=== PATIENT | male | born 1970 | race Caucasian/White ===

== ENCOUNTER 2023-01-11 13:45 | Emergency (ER) | payer MEDICARE, SELFPAY ==
[2023-01-11] VITALS (16 sets, daily range): BP systolic 98–125; BP diastolic 41–60; PULSE 57–76; RESP 16–21; TEMP 36.7; O2SAT 93–97; BMI 28.3
--- NOTE | 2023-01-11 13:53 | ECG_ITS ---
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 Measurements Intervals [place] Rate: 64 P: -10 SC: 158 QRS: -29 QRSD: 122 T: 152 QT: 410 QTc: 424 Interpretive Statements SINUS RHYTHM POSSIBLE LEFT ATRIAL ENLARGEMENT [-0.1mV P-WAVE IN V1/V2] POSSIBLE RIGHT VENTRICULAR CONDUCTION DELAY [RSR (QR) IN V1/V2] INFERIOR MYOCARDIAL INFARCTION , PROBABLY OLD [40+ ms Q WAVE AND/OR ST/T ABNORMALITY IN II/aVF] INTERPRETATION BASED ON A DEFAULT AGE OF 40 YEARS No previous ECG available for comparison Electronically Signed On 01-11-2023 22:09:58 CDT by Maria Del Rosario Clarke M.D. [id number] f
--- NOTE | 2023-01-11 13:58 | W.ED.CHESTPA ---
HPI - Chest Pain General: Chief Complaint: Chest Pain Stated Complaint: CHEST PAIN Time Seen by Provider: 01/11/23 13:53 History of Present Illness: Arrives via EMS with complaints of chest pain, dizziness and fall. Patient states this started about 1 hour prior to arrival. EMS did give patient 1 nitro and aspirin patient is now pain-free. Patient does have a history of a three-vessel CABG approximately 3 years ago and possible [place] MD complaint: chest pain Pertinent past history: coronary artery disease and prior [place] Onset (ago): hour(s) (1 hour) Timing of current episode: now resolved Prior episodes: Yes Pain location: left chest Severity: mild Quality: sharp Relieving factors: nitroglycerin Exacerbating factors: nothing Associated symptoms: Reports syncope (Possible syncope and fall); Deny abdominal pain, dyspnea, fever(s), nausea, palpitations or vomiting Treatment prior to arrival: aspirin and nitroglycerin Review of Systems General: Reports: 10 or more systems reviewed and unremarkable except in HPI and below Const: Denies: fever(s) or chills Eyes: Denies: change in vision ENMT: Denies: throat pain or odynophagia Card: Reports: chest pain and syncope (Possible syncope and fall); Denies: palpitations or irregular heart rhythm Resp: Denies: dyspnea, productive cough or non-productive cough GI: Denies: abdominal pain, nausea, vomiting or diarrhea : Denies: flank pain or dysuria Musc: Denies: neck pain or back pain Skin/Breast: Denies: rash or pruritus Neuro: Denies: headache(s), numbness in extremities or weakness in extremities Psych: Denies: anxiety or depression Physical Exam Const: COMMON NORMALS: no acute distress, average body habitus, patient oriented x3, no limitations, healthy appearing, alert and well nourished HENMT: COMMON NORMALS: normocephalic, atraumatic, hearing grossly normal bilaterally, external ears normal, Normal external nose present and moist oral mucous membranes HEAD & SCALP: normocephalic and atraumatic NOSE: Normal external nose present EXTERNAL EAR: Yes external ears normal Neck/C-Spine: COMMON NORMALS: full ROM, no lymphadenopathy, supple, no meningeal signs, no JVD, Thyroid normal and No carotid bruits THYROID: Thyroid normal Chest: COMMONS NORMALS: normal inspection of the chest OTHER: Tender to palpation over left anterior chest wall Resp: COMMON NORMALS: normal respiratory effort, No retractions, No use of accessory muscles and clear to auscultation bilaterally AUSCULTATION: clear to auscultation bilaterally Cardio: COMMON NORMALS: no JVD, regular rate, regular rhythm, S1 normal heart sound present, S2 normal heart sound present, No gallops present (Cardio), No clicks present (Cardio) and No murmurs present (Cardio) RATE: regular rate RHYTHM: regular rhythm HEART SOUNDS: S1 normal heart sound present and S2 normal heart sound present GI: COMMON NORMALS: Normal to inspection, nondistended, normoactive bowel sounds present, Soft to palpation, non-tender, No hepatosplenomegaly present and no masses PALPATION: Yes Soft to palpation and Yes No hepatosplenomegaly present : COMMON NORMALS: Yes no CVA tenderness BLADDER/KIDNEY EXAM: Yes no CVA tenderness Back/Pelvis: COMMON NORMALS: no CVA tenderness Extremity: COMMON NORMALS: normal to inspection Neuro: COMMON NORMALS: patient oriented x3 SENSORIUM/ORIENTATION: Yes alert MENINGEAL SIGNS: Yes no meningeal signs Course Vital Signs: Vital signs: Vital Signs Temperature 98.1 F 01/11/23 13:48 Pulse Rate 76 01/11/23 15:20 Respiratory Rate 17 01/11/23 15:20 Blood Pressure 111/49 01/11/23 16:00 Pulse Oximetry 97 01/11/23 16:00 Oxygen Delivery Me thod 01/11/23 13:48 MDM - Chest Pain Medical Decision Making Patient presents with complaints of chest pain and syncope, patient states he had this happen approximately 1 hour prior to arrival. Patient has had this happen in the past. Patient does have a defibrillator and has had a CABG in the past. Patient denies any palpitations tachycardia. Patient's chest pain has resolved. Upon physical exam of the patient as well as review of the labs which included serial troponins and serial EKGs is felt that this chest pain is not cardiac in nature. These findings were discussed with the patient and patient will be discharged home to follow-up with his primary care practitioner within the next week. Differential Diagnosis Unlikely acute massive pulmonary embolism, acute respiratory failure, acute myocardial infarction, cardiac arrest or sudden cardiac Lab Data 01/11/23 13:50 01/11/23 13:50 Radiology Impressions Chest X-Ray 01/11/23 14:05 IMPRESSION: No acute findings. Laboratory Results WBC 7.1 10^3/uL (4.0-10.0) 01/11/23 13:50 RBC 5.53 10^6/uL (4.1-5.3) H 01/11/23 13:50 Hgb 15.9 g/dL (11.7-16.6) 01/11/23 13:50 Hct 49.4 % (42.0-52.0) 01/11/23 13:50 MCV 89.3 fl (80-94) 01/11/23 13:50 MCH 28.8 pg (28.0-34.0) 01/11/23 13:50 MCHC 32.2 g/dL (30.0-36.0) 01/11/23 13:50 RDW 13.9 % (12.1-15.1) 01/11/23 13:50 Plt Count 319 10^3/cmm (130-400) 01/11/23 13:50 MPV 9.8 fL (7.4-10.4) 01/11/23 13:50 Neut % (Auto) 46.3 % 01/11/23 13:50 Lymph % (Auto) 38.0 % 01/11/23 13:50 [place] % (Auto) 8.5 % 01/11/23 13:50 Eos % (Auto) 6.1 % 01/11/23 13:50 Baso % (Auto) 0.8 % 01/11/23 13:50 Neut # (Auto) 3.28 10^3/uL (1.8-7.7) 01/11/23 13:50 Lymph # (Auto) 2.7 10^3/uL (0.8-4.8) 01/11/23 13:50 [place] # (Auto) 0.6 10^3/uL (0.2-0.9) 01/11/23 13:50 Eos # (Auto) 0.4 10^3/uL (0.0-0.8) 01/11/23 13:50 Baso # (Auto) 0.1 10^3/uL (0.0-0.1) 01/11/23 13:50 Nucleated RBC % (auto) 0 % 01/11/23 13:50 Nucleated RBCs # 0.0 /100WBC 01/11/23 13:50 PT 12.70 SECONDS (12.1-14.9) 01/11/23 13:50 INR 0.93 (0.8-1.2) 01/11/23 13:50 Sodium 135 mmol/L (136-145) L 01/11/23 13:50 Potassium 4.1 mmol/L (3.5-5.1) 01/11/23 13:50 Chloride 102 mmol/L (98-107) 01/11/23 13:50 Carbon Dioxide 22 mmol/L (22-29) 01/11/23 13:50 Anion Gap 15.1 (5-19) 01/11/23 13:50 BUN 19 mg/dL (6-20) 01/11/23 13:50 Creatinine 0.8 mg/dL (0.7-1.2) 01/11/23 13:50 GFR Calculation 101.9 mL/min (90-130) 01/11/23 13:50 Glucose 111 mg/dL (65-115) 01/11/23 13:50 Calculated Osmolality 283 mOsm/kg (285-295) L 01/11/23 13:50 Calcium 9.0 mg/dL (8.5-10.5) 01/11/23 13:50 Total Bilirubin 0.2 mg/dL (0.15-1.2) 01/11/23 13:50 AST 14 U/L (0-40) 01/11/23 13:50 ALT 11 U/L (0-41) 01/11/23 13:50 Alkaline Phosphatase 78 U/L (40-130) 01/11/23 13:50 Troponin T Baseline 12 ng/L (0-15) 01/11/23 13:50 Troponin T 120 Minute 11.51 ng/L (0-15) 01/11/23 16:26 Total Protein 6.9 g/dL (6.6-8.7) 01/11/23 13:50 Albumin 3.6 g/dL (3.5-5.2) 01/11/23 13:50 Globulin 3.3 g/dL (1.3-4.6) 01/11/23 13:50 Urine Color Yellow (Yellow) 01/11/23 14:30 Urine Appearance Sl hazy (CLEAR) A 01/11/23 14:30 Urine pH 5 (5-7) 01/11/23 14:30 Ur Specific [place] 1.025 (1.005-1.030) 01/11/23 14:30 Urine Protein Neg (Negative) 01/11/23 14:30 Urine Glucose (UA) Norm (Normal) 01/11/23 14:30 Urine Ketones Negative (Negative) 01/11/23 14:30 Urine Blood Neg (Negative) 01/11/23 14:30 Urine Nitrate Negative (Negative) 01/11/23 14:30 Urine Bilirubin Neg (Negative) 01/11/23 14:30 Urine Urobilinogen Norm mg/dL (Negative) 01/11/23 14:30 Ur Leukocyte Esterase Trace (Negative) H 01/11/23 14:30 Urine RBC 0-4 /hpf (0-2) H 01/11/23 14:30 Urine WBC 10-15 /hpf (0-5) H 01/11/23 14:30 Ur Squamous Epith Cells 0-4 /hpf (0-5) H 01/11/23 14:30 Amorphous Sediment Not Reportable 01/11/23 14:30 Urine Bacteria Trace /hpf (NONE) 01/11/23 14:30 Urine Mucus 2+ /hpf 01/11/23 14:30 EKG Data EKG 1: I personally reviewed and interpreted this EKG as follows: EKG interpretation date: 01/11/23 EKG interpretation time: 13:50 Prior EKG tracings: not available for review Interpretation: EKG showed ventricular rate normal sinus rhythm at 64 bpm, TX interval 158, QRS duration 122, QTc 419, possible left atrial enlargement, possible right ventricular conduction delay, inferior myocardial infarction probably old shows Q waves and/or ST abnormalities in 2 and aVF. EKG 2: I personally reviewed and interpreted this EKG as follows: EKG interpretation date: 01/11/23 EKG interpretation time: 15:47 Prior EKG tracings: available for review Interpretation: EKG showed sinus bradycardia with a ventricular rate of 56 bpm, TX interval 167, QRS duration 115, QTc of 413, right axis deviation, possible right ventricular conduction delay, possible inferior myocardial infarction of indeterminate age Q waves and/or ST T wave abnormalities in leads II and aVF Discharge Plan Discharge Patient Disposition: Home Clinical Impression: Chest pain Condition: Stable Discharge Orders: Discharge ED (Routine); Ordered 01/11/23 Ordered By: Rigo Ambrocio Patient Instructions: Chest Pain (ED) Coding Level of Care Code ED [employer] Internship for Jacky Carvajal
--- NOTE | 2023-01-11 14:05 | XRR_ITS ---
PROCEDURE INFORMATION: Exam: XR Chest Exam date and time: 01/11/2023 2:11 PM Age: 52 years old Clinical indication: Pain; Chest pressure; Prior surgery; Surgery type: Triple bypass; Valve replacement; Defibrillator; Additional info: Chest pain TECHNIQUE: Imaging protocol: Radiologic exam of the chest. Views: 1 view. COMPARISON: No relevant prior studies available. FINDINGS: Tubes, catheters and devices: There is a single lead AICD with the lead positioned in the right ventricle. Lungs: Lungs are clear. Pleural spaces: There is no pleural effusion or pneumothorax. Heart/Mediastinum: Cardiomediastinal contours are unremarkable. Bones/joints: Sternal wires are present. There is no displacement to suggest sternal dehiscence. No acute fracture. XR/XR chest 1V portable [id number] IMPRESSION: No acute findings.
[2023-01-11 14:27] LABS: Basophils # 0.1 10^3/uL (0.0-0.1); Basophils % 0.8 %; Eosinophils # 0.4 10^3/uL (0.0-0.8); Eosinophils % 6.1 %; Hematocrit 49.4 % (42.0-52.0); Hemoglobin 15.9 g/dL (11.7-16.6); Lymphocytes # 2.7 10^3/uL (0.8-4.8); Mean Corpuscular HGB Conc 32.2 g/dL (30.0-36.0); Mean Corpuscular Hemoglobin 28.8 pg (28.0-34.0); Mean Corpuscular Volume 89.3 fl (80-94); Mean Platelet Volume 9.8 fL (7.4-10.4); Monocytes # 0.6 10^3/uL (0.2-0.9); Monocytes % 8.5 %; Neutrophils # 3.28 10^3/uL (1.8-7.7); Neutrophils % 46.3 %; Nucleated Red Blood Cells % 0 %; Platelet Count 319 10^3/cmm (130-400); Red Blood Count 5.53 10^6/uL (4.1-5.3); Red Cell Distribution Width 13.9 % (12.1-15.1); White Blood Count 7.1 10^3/uL (4.0-10.0)
[2023-01-11 14:31] LABS: INR 0.93 (0.8-1.2)
[2023-01-11 14:35] LABS: Alanine Aminotransferase 11 U/L (0-41); Albumin Level 3.6 g/dL (3.5-5.2); Alkaline Phosphatase 78 U/L (40-130); Anion Gap 15.1 (5-19); Aspartate Amino Transferase 14 U/L (0-40); Blood Urea Nitrogen 19 mg/dL (6-20); Carbon Dioxide 22 mmol/L (22-29); Chloride 102 mmol/L (98-107); Globulin 3.3 g/dL (1.3-4.6); Glomerular Filtration Rate 101.9 mL/min (90-130); Glucose 111 mg/dL (65-115); Osmolality Calculated 283 mOsm/kg (285-295); Potassium 4.1 mmol/L (3.5-5.1); Sodium 135 mmol/L (136-145); Total Bilirubin 0.2 mg/dL (0.15-1.2); Total Protein 6.9 g/dL (6.6-8.7); Troponin(5th) Baseline 12 ng/L (0-15)
[2023-01-11 15:26] LABS: Add Urine Microscopic? YES; Bacteria Urine TRACE /hpf; Bilirubin Urine Neg (Negative); Blood Urine Neg (Negative); Glucose Urine UA Norm (Normal); Ketones Urine Negative (Negative); Leukocyte Esterase Urine Trace (Negative); Mucus Urine 2+ /hpf; Nitrate Urine Negative (Negative); Protein Urine Neg (Negative); RBC Urine 0-4 /hpf (0-2); Specific Gravity, Urine 1.025 (1.005-1.030); Squamous Epithelial Cell Urine 0-4 /hpf (0-5); Urine Appearance SL Hazy (CLEAR); Urine Color Yellow (Yellow); Urobilinogen Urine Norm (Negative); pH Urine 5 (5-7)
--- NOTE | 2023-01-11 16:06 | ECG_ITS ---
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 Measurements Intervals [place] Rate: 56 P: 89 MT: 167 QRS: 102 QRSD: 115 T: -28 QT: 421 QTc: 408 Interpretive Statements SINUS BRADYCARDIA RIGHT AXIS DEVIATION [QRS AXIS > 100] POSSIBLE RIGHT VENTRICULAR CONDUCTION DELAY [RSR (QR) IN V1/V2] INFERIOR MYOCARDIAL INFARCTION , OF INDETERMINATE AGE [40+ ms Q WAVE AND/OR ST/T ABNORMALITY IN II/aVF] No previous ECG available for comparison Electronically Signed On 01-11-2023 22:21:06 CDT by Maria Del Rosario Clarke M.D. [id number]
[2023-01-11 17:02] LABS: Troponin 5 2HR 11.51 ng/L (0-15)
[2023-01-11 17:29] LABS: Troponin 5 2HR Delta -0.49 ABS# (0-10)
--- NOTE | 2023-01-16 11:33 | DCPLANNER ---
circulation manager called patient due to no primary care physician - no answer at this time.
== END 2023-01-11 17:27 | disposition home or self-care (01) ==
PROVIDERS: Emergency Provider Emergency Medicine
DX: R07.9 Chest pain, unspecified (principal)
CPT/HCPCS: 36415; 71045; 80053; 81001; 84484; 85025; 85610; 93005; 99285

== ENCOUNTER 2023-03-28 20:48 | Inpatient (IN) | payer MEDICARE, MEDICAID, SELFPAY ==
--- NOTE | 2023-03-28 20:52 | W.ED.OVERDOS ---
Documented by User: Austin Barrow MD 04/09/23 17:05 HPI - Overdose General: Chief Complaint: Overdose Stated Complaint: Overdose Time Seen by Provider: 03/28/23 20:52 History of Present Illness: Mr. Ford is a 52-year-old gentleman with history of HIV on antiretrovirals, CABG, depression presenting to the emergency department for overdose. He reports that he took approximately 39 tabs of his Zoloft approximately 1 hour prior to arrival. He tried to vomit twice after but is unsure if he got any of the pills up. He still feels mildly nauseous. He is somewhat noncommittal on actual intent and reports that it was just that everything hit him at once. He initially is from [place] however is in this area on disability with family and family are not supportive of him. He feels constant pressure to try and please others and this is become overwhelming. He denies other overdose of his medications. No other specific changes in health, exacerbating, or alleviating factors identified. Onset (ago): hour(s) Intent: unwilling to say Context: Intentional Overdose: relationship problems and drug/ETOH problems Review of Systems General: Reports: 10 or more systems reviewed and unremarkable except in HPI and below PFSH ED PFSH: Medical History (Updated 04/08/23 @ 03:00 by Austin Barrow MD) Depression HIV (human immunodeficiency virus infection) Surgical History (Updated 03/28/23 @ 21:07 by Austin Barrow MD) History of coronary artery bypass graft Physical Exam Const: COMMON NORMALS: alert GENERAL APPEARANCE: cooperative and well developed HENMT: COMMON NORMALS: normocephalic and atraumatic HEAD & SCALP: normocephalic and atraumatic THROAT: posterior oropharynx normal Eye: COMMON NORMALS: conjunctivae normal CONJUNCTIVA: Yes conjunctivae normal SCLERA: sclerae normal Neck/C-Spine: COMMON NORMALS: supple GENERAL: Yes trachea midline Resp: COMMON NORMALS: normal respiratory effort EFFORT & INSPECTION: Yes able to speak in complete sentences Cardio: COMMON NORMALS: regular rate and regular rhythm RATE: regular rate RHYTHM: regular rhythm GI: COMMON NORMALS: Soft to palpation PALPATION: Yes Soft to palpation and No Tenderness to palpation present (GI) Extremity: GENERAL: Yes normal exam except as noted and No edema Neuro: COMMON NORMALS: moves all extremities SENSORIUM/ORIENTATION: Yes alert and No Orientation impaired Psych: COMMON NORMALS: mental status grossly normal and Normal thought process present THOUGHT PROCESS: Normal thought process present Course Vital Signs: Vital signs: Vital Signs Temperature 97.4 F L 04/02/23 14:32 Pulse Rate 102 H 04/02/23 14:32 Respiratory Rate 15 04/02/23 14:32 Blood Pressure 86/54 04/02/23 14:32 Pulse Oximetry 97 04/02/23 14:32 Oxygen Delivery Me thod Room Air 04/02/23 14:00 MDM - Overdose Medical Decision Making 52-year-old gentleman presenting to the emergency department for assessment for drug overdose. Likely intentional suicide attempt. Exam as above. Patient is nontoxic. Vitals are satisfactory. EKG notable for sinus rhythm with interventricular conduction delay and nonspecific ST segment abnormalities. No STEMI. Labs notable for no leukocytosis, likely mild hemoconcentration. No significant electrolyte arrangements. Toxic ingestions are positive for elevated ethyl alcohol. Urine drug screen is negative. Patient treated with antiemetic. No indication for imaging. Patient placed on a psychiatric hold and patient discussed with psychiatry service. Handed off to Dr. Garcia pending continued ED observation. And subsequent admission. 52 year old male checked out to wi at shift change by the previous physician. This gentleman had taken sertraline, a significant dosage. It was deemed if he remained medically stable without arrhythmia or other symptoms by 4:00 AM, he could matriculate to the neuropsychiatric unit. There were no arrhythmias noted on the monitor. His vitals remain stable period and he was awake and alert without symptoms. He'll be admitted to the NPU. Medical Records I reviewed the patient's medical records. Lab Data I reviewed the patient's lab results. 03/28/23 21:15 03/28/23 21:15 Laboratory Results WBC 9.0 10^3/uL (4.0-10.0) 03/28/23 21:15 RBC 5.76 10^6/uL (4.1-5.3) H 03/28/23 21:15 Hgb 16.7 g/dL (11.7-16.6) H 03/28/23 21:15 Hct 49.8 % (42.0-52.0) 03/28/23 21:15 MCV 86.5 fl (80-94) 03/28/23 21:15 MCH 29.0 pg (28.0-34.0) 03/28/23 21:15 MCHC 33.5 g/dL (30.0-36.0) 03/28/23 21:15 RDW 13.8 % (12.1-15.1) 03/28/23 21:15 Plt Count 256 10^3/cmm (130-400) 03/28/23 21:15 MPV 9.5 fL (7.4-10.4) 03/28/23 21:15 Neut % (Auto) 40.8 % 03/28/23 21:15 Lymph % (Auto) 44.4 % 03/28/23 21:15 [place] % (Auto) 10.2 % 03/28/23 21:15 Eos % (Auto) 3.7 % 03/28/23 21:15 Baso % (Auto) 0.7 % 03/28/23 21:15 Neut # (Auto) 3.67 10^3/uL (1.8-7.7) 03/28/23 21:15 Lymph # (Auto) 4.0 10^3/uL (0.8-4.8) 03/28/23 21:15 [place] # (Auto) 0.9 10^3/uL (0.2-0.9) 03/28/23 21:15 Eos # (Auto) 0.3 10^3/uL (0.0-0.8) 03/28/23 21:15 Baso # (Auto) 0.1 10^3/uL (0.0-0.1) 03/28/23 21:15 Nucleated RBC % (auto) 0 % 03/28/23 21:15 Nucleated RBCs # 0.0 /100WBC 03/28/23 21:15 Sodium 139 mmol/L (136-145) 03/28/23 21:15 Potassium 3.9 mmol/L (3.5-5.1) 03/28/23 21:15 Chloride 103 mmol/L (98-107) 03/28/23 21:15 Carbon Dioxide 23 mmol/L (22-29) 03/28/23 21:15 Anion Gap 16.9 (5-19) 03/28/23 21:15 BUN 11 mg/dL (6-20) 03/28/23 21:15 Creatinine 1.0 mg/dL (0.7-1.2) 03/28/23 21:15 GFR Calculation 78.8 mL/min (90-130) L 03/28/23 21:15 Glucose 88 mg/dL (65-115) 03/28/23 21:15 Calculated Osmolality 287 mOsm/kg (285-295) 03/28/23 21:15 Calcium 8.4 mg/dL (8.5-10.5) L 03/28/23 21:15 Magnesium 2.3 mg/dL (1.7-2.3) 03/28/23 21:15 Total Bilirubin 0.2 mg/dL (0.15-1.2) 03/28/23 21:15 AST 20 U/L (0-40) 03/28/23 21:15 ALT 15 U/L (0-41) 03/28/23 21:15 Alkaline Phosphatase 78 U/L (40-130) 03/28/23 21:15 Total Protein 7.8 g/dL (6.6-8.7) 03/28/23 21:15 Albumin 4.2 g/dL (3.5-5.2) 03/28/23 21:15 Globulin 3.6 g/dL (1.3-4.6) 03/28/23 21:15 TSH 1.83 uIU/mL (0.27-4.20) 03/28/23 21:15 Salicylates 0.8 mg/dL (3-10) L 03/28/23 21:15 Urine Opiates Screen Negative ng/mL (Negative) 03/28/23 21:31 Acetaminophen < 5.0 ug/mL (10-30) L 03/28/23 21:15 Ur Barbiturates Screen Negative ng/mL (Negative) 03/28/23 21:31 Ur Phencyclidine Scrn Negative ng/mL (Negative) 03/28/23 21:31 Ur Amphetamines Screen Negative ng/mL (Negative) 03/28/23 21:31 U Benzodiazepines Scrn Negative ng/mL (Negative) 03/28/23 21:31 Urine Cocaine Screen Negative ng/mL (Negative) 03/28/23 21:31 U Marijuana (THC) Screen Negative ng/mL (Negative) 03/28/23 21:31 Ethyl Alcohol 138 mg/dL (0-10) H 03/28/23 21:15 Discharge Plan Discharge Patient Disposition: Admitted As Inpatient Admit Provider: Yariel Ramirez Clinical Impression: Suicide attempt by drug overdose Condition: Stable Discharge Diet: Regular Discharge Activity: Resume usual activity Coding Level of Care Code ED Lever Operator for Chg Fwd Documented by User: Robert Garcia DO 03/31/23 20:05 HPI - Overdose General: Chief Complaint: Overdose Stated Complaint: Overdose Time Seen by Provider: 03/28/23 20:52 [facility] ED PFSH: Medical History (Updated 04/08/23 @ 03:00 by Austin Barrow MD) Depression HIV (human immunodeficiency virus infection) Surgical History (Updated 03/28/23 @ 21:07 by Austin Barrow MD) History of coronary artery bypass graft Course Vital Signs: Vital signs: Vital Signs Temperature 97.4 F L 04/02/23 14:32 Pulse Rate 102 H 04/02/23 14:32 Respiratory Rate 15 04/02/23 14:32 Blood Pressure 86/54 04/02/23 14:32 Pulse Oximetry 97 04/02/23 14:32 Oxygen Delivery Me thod Room Air 04/02/23 14:00 MDM - Overdose Medical Decision Making 52 year old male checked out to me at shift change by the previous physician. This gentleman had taken sertraline, a significant dosage. It was deemed if he remained medically stable without arrhythmia or other symptoms by 4:00 AM, he could matriculate to the neuropsychiatric unit. There were no arrhythmias noted on the monitor. His vitals remain stable period and he was awake and alert without symptoms. He'll be admitted to the NPU. Lab Data 03/28/23 21:15 03/28/23 21:15 Laboratory Results WBC 9.0 10^3/uL (4.0-10.0) 03/28/23 21:15 RBC 5.76 10^6/uL (4.1-5.3) H 03/28/23 21:15 Hgb 16.7 g/dL (11.7-16.6) H 03/28/23 21:15 Hct 49.8 % (42.0-52.0) 03/28/23 21:15 MCV 86.5 fl (80-94) 03/28/23 21:15 MCH 29.0 pg (28.0-34.0) 03/28/23 21:15 MCHC 33.5 g/dL (30.0-36.0) 03/28/23 21:15 RDW 13.8 % (12.1-15.1) 03/28/23 21:15 Plt Count 256 10^3/cmm (130-400) 03/28/23 21:15 MPV 9.5 fL (7.4-10.4) 03/28/23 21:15 Neut % (Auto) 40.8 % 03/28/23 21:15 Lymph % (Auto) 44.4 % 03/28/23 21:15 [place] % (Auto) 10.2 % 03/28/23 21:15 Eos % (Auto) 3.7 % 03/28/23 21:15 Baso % (Auto) 0.7 % 03/28/23 21:15 Neut # (Auto) 3.67 10^3/uL (1.8-7.7) 03/28/23 21:15 Lymph # (Auto) 4.0 10^3/uL (0.8-4.8) 03/28/23 21:15 [place] # (Auto) 0.9 10^3/uL (0.2-0.9) 03/28/23 21:15 Eos # (Auto) 0.3 10^3/uL (0.0-0.8) 03/28/23 21:15 Baso # (Auto) 0.1 10^3/uL (0.0-0.1) 03/28/23 21:15 Nucleated RBC % (auto) 0 % 03/28/23 21:15 Nucleated RBCs # 0.0 /100WBC 03/28/23 21:15 Sodium 139 mmol/L (136-145) 03/28/23 21:15 Potassium 3.9 mmol/L (3.5-5.1) 03/28/23 21:15 Chloride 103 mmol/L (98-107) 03/28/23 21:15 Carbon Dioxide 23 mmol/L (22-29) 03/28/23 21:15 Anion Gap 16.9 (5-19) 03/28/23 21:15 BUN 11 mg/dL (6-20) 03/28/23 21:15 Creatinine 1.0 mg/dL (0.7-1.2) 03/28/23 21:15 GFR Calculation 78.8 mL/min (90-130) L 03/28/23 21:15 Glucose 88 mg/dL (65-115) 03/28/23 21:15 Calculated Osmolality 287 mOsm/kg (285-295) 03/28/23 21:15 Calcium 8.4 mg/dL (8.5-10.5) L 03/28/23 21:15 Magnesium 2.3 mg/dL (1.7-2.3) 03/28/23 21:15 Total Bilirubin 0.2 mg/dL (0.15-1.2) 03/28/23 21:15 AST 20 U/L (0-40) 03/28/23 21:15 ALT 15 U/L (0-41) 03/28/23 21:15 Alkaline Phosphatase 78 U/L (40-130) 03/28/23 21:15 Total Protein 7.8 g/dL (6.6-8.7) 03/28/23 21:15 Albumin 4.2 g/dL (3.5-5.2) 03/28/23 21:15 Globulin 3.6 g/dL (1.3-4.6) 03/28/23 21:15 TSH 1.83 uIU/mL (0.27-4.20) 03/28/23 21:15 Salicylates 0.8 mg/dL (3-10) L 03/28/23 21:15 Urine Opiates Screen Negative ng/mL (Negative) 03/28/23 21:31 Acetaminophen < 5.0 ug/mL (10-30) L 03/28/23 21:15 Ur Barbiturates Screen Negative ng/mL (Negative) 03/28/23 21:31 Ur Phencyclidine Scrn Negative ng/mL (Negative) 03/28/23 21:31 Ur Amphetamines Screen Negative ng/mL (Negative) 03/28/23 21:31 U Benzodiazepines Scrn Negative ng/mL (Negative) 03/28/23 21:31 Urine Cocaine Screen Negative ng/mL (Negative) 03/28/23 21:31 U Marijuana (THC) Screen Negative ng/mL (Negative) 03/28/23 21:31 Ethyl Alcohol 138 mg/dL (0-10) H 03/28/23 21:15 Discharge Plan Discharge Patient Disposition: Admitted As Inpatient Admit Provider: Yariel Ramirez Clinical Impression: Suicide attempt by drug overdose Condition: Stable Discharge Diet: Regular Discharge Activity: Resume usual activity Coding Level of Care Code ED Lever Operator for Jacky Carvajal
[2023-03-28 20:56] VITALS: BP 152/82; PULSE 85; RESP 19; TEMP 36.9; O2SAT 96; BMI 27.9
[2023-03-28 21:21] LABS: Basophils # 0.1 10^3/uL (0.0-0.1); Basophils % 0.7 %; Eosinophils # 0.3 10^3/uL (0.0-0.8); Eosinophils % 3.7 %; Hematocrit 49.8 % (42.0-52.0); Hemoglobin 16.7 g/dL (11.7-16.6); Lymphocytes % 44.4 %; Mean Corpuscular HGB Conc 33.5 g/dL (30.0-36.0); Mean Corpuscular Volume 86.5 fl (80-94); Mean Platelet Volume 9.5 fL (7.4-10.4); Monocytes # 0.9 10^3/uL (0.2-0.9); Monocytes % 10.2 %; Neutrophils # 3.67 10^3/uL (1.8-7.7); Neutrophils % 40.8 %; Nucleated Red Blood Cells % 0 %; Platelet Count 256 10^3/cmm (130-400); Red Blood Count 5.76 10^6/uL (4.1-5.3); Red Cell Distribution Width 13.8 % (12.1-15.1)
[2023-03-28] MEDS: ondansetron 2 mg/ML SDV 2 mL 4 MG IVP (21:44)
[2023-03-28 21:48] LABS: Amphetamines Screen Urine Negative (Negative); Barbiturates Screen Urine Negative (Negative); Benzodiazepines Screen Urine Negative (Negative); Cocaine Screen Urine Negative (Negative); Opiate Screen Urine Negative (Negative); PCP Screen Urine Negative (Negative); THC Screen Urine Negative (Negative)
[2023-03-28 21:49] LABS: Acetaminophen < 5.0 ug/mL (10-30); Alanine Aminotransferase 15 U/L (0-41); Albumin Level 4.2 g/dL (3.5-5.2); Alcohol Level 138 mg/dL (0-10); Alkaline Phosphatase 78 U/L (40-130); Anion Gap 16.9 (5-19); Aspartate Amino Transferase 20 U/L (0-40); Blood Urea Nitrogen 11 mg/dL (6-20); Calcium 8.4 mg/dL (8.5-10.5); Carbon Dioxide 23 mmol/L (22-29); Chloride 103 mmol/L (98-107); Globulin 3.6 g/dL (1.3-4.6); Glomerular Filtration Rate 78.8 mL/min (90-130); Glucose 88 mg/dL (65-115); Osmolality Calculated 287 mOsm/kg (285-295); Potassium 3.9 mmol/L (3.5-5.1); Salicylate 0.8 mg/dL (3-10); Sodium 139 mmol/L (136-145); Thyroid Stimulating Hormone 1.83 uIU/mL (0.27-4.20); Total Bilirubin 0.2 mg/dL (0.15-1.2); Total Protein 7.8 g/dL (6.6-8.7)
--- NOTE | 2023-03-28 21:56 | ECG_ITS ---
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 Measurements Intervals [place] Rate: 84 P: 73 [place]: 164 QRS: 19 QRSD: 134 T: 61 QT: 385 QTc: 458 Interpretive Statements SINUS RHYTHM WITH OCCASIONAL VENTRICULAR PREMATURE COMPLEXES INTRAVENTRICULAR CONDUCTION DELAY [130+ ms QRS DURATION] INFERIOR MYOCARDIAL INFARCTION , PROBABLY OLD [40+ ms Q WAVE AND/OR ST/T ABNORMALITY IN II/aVF] Compared to ECG 01/11/2023 15:47:33 Ventricular premature complex(es) now present Intraventricular conduction delay now present Sinus bradycardia no longer present Right-axis deviation no longer present Myocardial infarct finding still present Electronically Signed On 03-29-2023 8:22:05 CDT by Danny Montgomery M.D. [id number]
[2023-03-28 21:57] VITALS: BP 152/90; PULSE 87; RESP 23; O2SAT 96
[2023-03-28 22:18] LABS: Magnesium 2.3 mg/dL (1.7-2.3)
--- NOTE | 2023-03-28 22:30 | PC.NURSE ---
96 Hour Hold Patient Rights have been read to patient and a copy of the same has been given to him. C Java Developer Marguerite Ramirez was present at bedside at the time of reading.
[2023-03-28 23:12] VITALS: BP 161/105; PULSE 80; RESP 24; O2SAT 94
[2023-03-28] MEDS: nicotine 21 mg Patch 1 PATCH TRANSDERMA (23:30)
[2023-03-28 23:31] VITALS: BP 127/110; PULSE 92; RESP 18; O2SAT 94
[2023-03-29] VITALS (9 sets, daily range): BP systolic 117–179; BP diastolic 71–91; PULSE 67–84; RESP 14–18; TEMP 36.6–36.9; O2SAT 93–97; BMI 27.9
--- NOTE | 2023-03-29 | ECG_ITS ---
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 Measurements Intervals [place] Rate: 76 P: 74 SC: 161 QRS: 1 QRSD: 130 T: 50 QT: 388 QTc: 438 Interpretive Statements SINUS RHYTHM WITH OCCASIONAL SUPRAVENTRICULAR PREMATURE COMPLEXES INFERIOR MYOCARDIAL INFARCTION , PROBABLY OLD [40+ ms Q WAVE AND/OR ST/T ABNORMALITY IN II/aVF] Compared to ECG 03/28/2023 21:56:05 Ventricular premature complex(es) no longer present Intraventricular conduction delay no longer present Myocardial infarct finding still present Electronically Signed On 03-29-2023 8:21:55 CDT by Danny Montgomery M.D. [email or web address]
--- NOTE | 2023-03-29 01:53 | ECG_ITS ---
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 Measurements Intervals [place] Rate: 77 P: 71 NV: 165 QRS: 3 QRSD: 132 T: 55 QT: 395 QTc: 448 Interpretive Statements SINUS RHYTHM INTRAVENTRICULAR CONDUCTION DELAY [130+ ms QRS DURATION] INFERIOR MYOCARDIAL INFARCTION , PROBABLY OLD [40+ ms Q WAVE AND/OR ST/T ABNORMALITY IN II/aVF] Compared to ECG 03/29/2023 00:46:11 Intraventricular conduction delay now present Myocardial infarct finding still present Electronically Signed On 03-29-2023 8:21:50 CDT by Danny Montgomery M.D. [id number]
[2023-03-29] MEDS: folic acid 1 mg Tablet PO (09:00)
[2023-03-29] MEDS: multivitamin therapeutic Tablet 1 TAB PO (09:00)
[2023-03-29] MEDS: thiamine 100 mg Tablet PO (09:00)
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
[2023-03-30 06:00] VITALS: BP 121/69; PULSE 55; RESP 16; TEMP 36.4
[2023-03-30] MEDS: multivitamin therapeutic Tablet 1 TAB PO (08:16)
[2023-03-30] MEDS: folic acid 1 mg Tablet PO (08:16)
[2023-03-30] MEDS: thiamine 100 mg Tablet PO (08:17)
[2023-03-30] MEDS: nicotine 21 mg Patch 1 PATCH TRANSDERMA (10:06)
[2023-03-30 14:00] VITALS: BP 128/76; PULSE 60; RESP 16; TEMP 36.5; O2SAT 96
--- NOTE | 2023-03-30 18:28 | W.PM.NPUPNS ---
Subjective NPU Subjective: Patient presented today reporting that he is doing okay. He continued a washout period for the overdose of the Zoloft. We have been discussing whether to start given medication for make an increase in the Zoloft which likely should have been sometime before. He has not received his anxiety medication because his partner is somehow too busy to go back to their house to get it and bring it back to [place]. Mental Status Exam MSE Comments: This is a overweight white male, in hospital scrubs, with adequate grooming and eye contact. No abnormal movements except for mild psychomotor retardation. Cooperative with exam in mild distress. Speech was normal rate and volume and mildly effeminate. Mood described as fine; affect congruent. Thought process, organized. Thought content: patient denied any suicidal or homicidal ideation, there were no delusions reported or noted, patient denied any auditory or visual hallucinations. Attention, concentration, and memory appeared intact, but none were formally tested. Alert and oriented times three. Insight and judgment are fair. Impulse control is impaired. Vitals/I&O/Wt Last Vital Signs Temp 98.1 F 03/30/23 20:37 Pulse 59 L 03/30/23 20:37 Resp 18 03/30/23 20:37 BP 109/66 03/30/23 20:37 Pulse Ox 98 03/30/23 20:37 O2 Del Method Room Air 03/30/23 06:00 Data NPU 03/28/23 21:15 03/28/23 21:15 A&P Assessment and plan (1) Suicide attempt by drug overdose: (2) Depression: (3) HIV (human immunodeficiency virus infection): (4) History of coronary artery bypass graft: (5) Sibling relational problem: (6) Adjustment disorder with mixed disturbance of emotions and conduct: Plan This is a 52-year-old, white male, who presents after an overdose, on a 96-hour hold with fairly recent history of depression, and significant family conflict. 1. Consider restarting the Zoloft at 100 mg after some further observation, or consider starting Prozac. 2. Encourage individual, group, and milieu therapy. 3. Continue q-15-minute checks for safety. Involuntary Hold Information 96 Hour Hold: 96 Hour Involuntary Admission: Yes 96 Hour Hold Ending Date: 04/03/23 96 Hour Hold Ending Time: 00:01 Attestations NPU Medical Necessity Statement*: Inpatient hospitalization is medically necessary and the clinically appropriate intervention, at this time. We will monitor medications and make changes as indicated. Likely length of stay is 2-4 days. Coding Level of Care Code Acute Code for Chg Fwd Diagnoses Suicide attempt by drug overdose T50.902A Depression F32.A HIV (human immunodeficiency virus infection) B20 History of coronary artery bypass graft Z95.1 Sibling relational problem Z63.8 Adjustment disorder with mixed disturbance of emotions and conduct F43.25
[2023-03-30 20:37] VITALS: BP 109/66; PULSE 59; RESP 18; TEMP 36.7; O2SAT 98
[2023-03-30] MEDS: carvedilol 3.125 mg Tablet PO (21:17)
[2023-03-30] MEDS: lisinopril 5 mg Tablet PO (21:17)
[2023-03-31 06:00] VITALS: BP 112/74; PULSE 66; RESP 16; O2SAT 96
[2023-03-31] MEDS: multivitamin therapeutic Tablet 1 TAB PO (07:57)
[2023-03-31] MEDS: folic acid 1 mg Tablet PO (07:57)
[2023-03-31] MEDS: clopidogrel 75 mg Tablet PO (07:57)
[2023-03-31] MEDS: lisinopril 5 mg Tablet PO ×2 (07:57→20:13)
[2023-03-31] MEDS: thiamine 100 mg Tablet PO (07:57)
[2023-03-31] MEDS: carvedilol 3.125 mg Tablet PO ×2 (07:57→20:13)
[2023-03-31] MEDS: sertraline 50 mg Tablet PO (07:57)
--- NOTE | 2023-03-31 08:02 | PC.NURSE ---
refused scheduled triamcinolone acetonide cream this morning
[2023-03-31 09:00] VITALS: PULSE 56; RESP 16; O2SAT 96
[2023-03-31] MEDS: nicotine 21 mg Patch 1 PATCH TRANSDERMA (09:39)
--- NOTE | 2023-03-31 13:18 | W.PM.NPUPNS ---
Subjective NPU Subjective: Patient presented today reporting that he is doing fine. We agreed we would continue to consider which antidepressant to move forward with. At this point it is my recommendation to continue with the Zoloft but he is considering whether he wants to do that or move onto a different agent. He denies any side effects from his overdose and has still not had his medications brought to him by his significant other. Mental Status Exam MSE Comments: This is a overweight white male, in hospital scrubs, with adequate grooming and eye contact. No abnormal movements except for mild psychomotor retardation. Cooperative with exam in mild distress. Speech was normal rate and volume and mildly effeminate. Mood described as fine; affect congruent. Thought process, organized. Thought content: patient denied any suicidal or homicidal ideation, there were no delusions reported or noted, patient denied any auditory or visual hallucinations. Attention, concentration, and memory appeared intact, but none were formally tested. Alert and oriented times three. Insight and judgment are fair. Impulse control is impaired. Vitals/I&O/Wt Last Vital Signs Temp 98.1 F 03/30/23 20:37 Pulse 56 L 03/31/23 09:00 Resp 16 03/31/23 09:00 BP 112/74 03/31/23 06:00 Pulse Ox 96 03/31/23 09:00 O2 Del Method Room Air 03/31/23 09:00 Data NPU 03/28/23 21:15 03/28/23 21:15 A&P Assessment and plan (1) Suicide attempt by drug overdose: (2) Depression: (3) HIV (human immunodeficiency virus infection): (4) History of coronary artery bypass graft: (5) Sibling relational problem: (6) Adjustment disorder with mixed disturbance of emotions and conduct: Plan This is a 52-year-old, white male, who presents after an overdose, on a 96-hour hold with fairly recent history of depression, and significant family conflict. 1. Consider restarting the Zoloft at 100 mg after some further observation, or consider starting Prozac. 2. Encourage individual, group, and milieu therapy. 3. Continue q-15-minute checks for safety. Involuntary Hold Information 96 Hour Hold: 96 Hour Involuntary Admission: Yes 96 Hour Hold Ending Date: 04/03/23 96 Hour Hold Ending Time: 00:01 Attestations NPU Medical Necessity Statement*: Inpatient hospitalization is medically necessary and the clinically appropriate intervention, at this time. We will monitor medications and make changes as indicated. Likely length of stay is 1-3 days. Coding Level of Care Code Acute Code for Chg Fwd Diagnoses Suicide attempt by drug overdose T50.902A Depression F32.A HIV (human immunodeficiency virus infection) B20 History of coronary artery bypass graft Z95.1 Sibling relational problem Z63.8 Adjustment disorder with mixed disturbance of emotions and conduct F43.25
[2023-03-31 14:00] VITALS: BP 126/78; PULSE 62; RESP 17; TEMP 36.7; O2SAT 97
[2023-03-31] MEDS: triamcinolone 0.1% cream 15 gm 1 APPLIC TOPICAL (20:14)
[2023-03-31 21:06] VITALS: BP 93/57; PULSE 64; RESP 22; TEMP 36.6; O2SAT 96
[2023-04-01 06:00] VITALS: BP 112/71; PULSE 69; RESP 16; TEMP 36.8; O2SAT 96
--- NOTE | 2023-04-01 06:23 | P.NPUPN_ITS ---
Subjective NPU Subjective: Patient presented today reporting that he is feeling better overall. He reports that he is glad he came to the hospital and feeling that he got some good advice/therapy out of the groups. He reports that he is competent and being able to follow through with the plan and excepting the referrals from the social work team. He was able to contract for safety and we discussed discharge tomorr ow. Mental Status Exam MSE Comments: This is a overweight white male, in hospital scrubs, with adequate grooming and eye contact. No abnormal movements except for mild psychomotor retardation. Cooperative with exam in mild distress. Speech was normal rate and volume and mildly effeminate. Mood described as better; affect congruent. Thought process, organized. Thought content: patient denied any suicidal or homicidal ideation, there were no delusions reported or noted, patient denied any auditory or visual hallucinations. Attention, concentration, and memory appeared intact, but none were formally tested. Alert and oriented times three. Insight and judgment are fair. Impulse control is improving. Vitals/I&O/Wt Last Vital Signs Temp 98.2 F 04/01/23 06:00 Pulse 69 04/01/23 06:00 Resp 16 04/01/23 06:00 BP 112/71 04/01/23 06:00 Pulse Ox 96 04/01/23 06:00 O2 Del Method Room Air 04/01/23 06:00 Data NPU 03/28/23 21:15 03/28/23 21:15 A&P Assessment and plan (1) Suicide attempt by drug overdose: (2) Depression: (3) HIV (human immunodeficiency virus infection): (4) History of coronary artery bypass graft: (5) Sibling relational problem: (6) Adjustment disorder with mixed disturbance of emotions and conduct: Plan This is a 52-year-old, white male, who presents after an overdose, on a 96-hour hold with fairly recent history of depression, and significant family conflict. 1. Continue her medication. Except discontinue Zoloft and start Lexapro 10 mg p.o. every morning. 2. Encourage individual, group, and milieu therapy. 3. Continue q-15-minute checks for safety. Involuntary Hold Information 96 Hour Hold: 96 Hour Involuntary Admission: Yes 96 Hour Hold Ending Date: 04/03/23 96 Hour Hold Ending Time: 00:01 Attestations NPU Medical Necessity Statement*: Inpatient hospitalization is medically necessary and the clinically appropriate intervention, at this time. We will monitor medications and make changes as indicated. Plan for discharge tomorrow. Coding Level of Care Code Acute Code for Chg Fwd Diagnoses Suicide attempt by drug overdose T50.902A Depression F32.A HIV (human immunodeficiency virus infection) B20 History of coronary artery bypass graft Z95.1 Sibling relational problem Z63.8 Adjustment disorder with mixed disturbance of emotions and conduct F43.25
[2023-04-01] MEDS: folic acid 1 mg Tablet PO (08:05)
[2023-04-01] MEDS: thiamine 100 mg Tablet PO (08:06)
[2023-04-01] MEDS: clopidogrel 75 mg Tablet PO (08:06)
[2023-04-01] MEDS: sertraline 50 mg Tablet PO (08:06)
[2023-04-01] MEDS: multivitamin therapeutic Tablet 1 TAB PO (08:06)
[2023-04-01] MEDS: nicotine 21 mg Patch 1 PATCH TRANSDERMA (08:06)
[2023-04-01 08:13] VITALS: BP 92/59; PULSE 63
[2023-04-01] MEDS: escitalopram 10 mg Tablet PO (12:45)
[2023-04-01] MEDS: triamcinolone 0.1% cream 15 gm 1 APPLIC TOPICAL (13:43)
[2023-04-01 14:00] VITALS: BP 111/62; PULSE 56; RESP 16; TEMP 36.6; O2SAT 98
[2023-04-01] MEDS: carvedilol 3.125 mg Tablet PO (20:28)
[2023-04-01] MEDS: lisinopril 5 mg Tablet PO (20:28)
[2023-04-01 20:49] VITALS: BP 111/64; PULSE 71; RESP 18; TEMP 36.7; O2SAT 97
[2023-04-02 06:00] VITALS: BP 86/54; PULSE 102; RESP 15; TEMP 36.3; O2SAT 97
[2023-04-02] MEDS: folic acid 1 mg Tablet PO (09:07)
[2023-04-02] MEDS: lisinopril 5 mg Tablet PO (09:07)
[2023-04-02] MEDS: nicotine 21 mg Patch 1 PATCH TRANSDERMA (09:07)
[2023-04-02] MEDS: triamcinolone 0.1% cream 15 gm 1 APPLIC TOPICAL (09:08)
[2023-04-02] MEDS: escitalopram 10 mg Tablet PO (09:08)
[2023-04-02] MEDS: thiamine 100 mg Tablet PO (09:08)
[2023-04-02] MEDS: clopidogrel 75 mg Tablet PO (09:08)
[2023-04-02] MEDS: multivitamin therapeutic Tablet 1 TAB PO (09:08)
[2023-04-02] MEDS: carvedilol 3.125 mg Tablet PO (11:51)
[2023-04-02 14:00] VITALS: BP 90/58; PULSE 65; RESP 16; TEMP 36.6; O2SAT 98
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
[2023-04-02 14:32] VITALS: BP 86/54; PULSE 102; RESP 15; TEMP 36.3; O2SAT 97
--- NOTE | 2023-04-02 16:11 | DCPLANNER ---
IMM completed on 04/02/23 @ 2332. Pt was given a copy of rights and stated he understood his rights.
== END 2023-04-02 16:19 | disposition home or self-care (01) | DRG 918 ==
LOC: ER 03-29 02:07 → NP 03-29 03:08
PROVIDERS: Admitting Provider Psychiatry & Neurology Psychiatry; Emergency Provider Emergency Medicine; Visit Provider Psychiatry & Neurology Psychiatry
DX: T43.222A Poisoning by selective serotonin reuptake inhibitors, intentional self-harm, initial encounter (principal); B20 Human immunodeficiency virus [HIV] disease; R45.851 Suicidal ideations; F32.9 Major depressive disorder, single episode, unspecified; Z79.899 Other long term (current) drug therapy; Z95.1 Presence of aortocoronary bypass graft; F10.129 Alcohol abuse with intoxication, unspecified; F17.210 Nicotine dependence, cigarettes, uncomplicated; Z63.8 Other specified problems related to primary support group; F43.25 Adjustment disorder with mixed disturbance of emotions and conduct
CPT/HCPCS: 80053; 80306; 80307; 83735; 84443; 85025; 93005; 96374; 97150; 97165; 99238; 99285; J2405

== ENCOUNTER 2023-04-08 01:06 | Inpatient (IN) | payer MEDICARE, MEDICAID, SELFPAY ==
[2023-04-08] VITALS (10 sets, daily range): BP systolic 96–143; BP diastolic 57–87; PULSE 54–100; RESP 15–18; TEMP 36.6–36.8; O2SAT 90–99; BMI 26.6
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
--- NOTE | 2023-04-08 01:11 | ECG_ITS ---
[facility] Test Date: 2023-04-08 Pat Name: Junior Ford Department: Room: Gender: Male Pre Billing Clinician: : 1970 Requested By: Austin Barrow Order Number: [id number] Cervantes MD: Krystal Peralta M.D. Measurements Intervals Industry Rate: 86 P: 74 WV: 152 QRS: 14 QRSD: 125 T: 63 QT: 374 QTc: 449 Interpretive Statements SINUS RHYTHM INDETERMINATE AXIS Compared to ECG 03/29/2023 01:53:59 Indeterminate axis now present Intraventricular conduction delay no longer present Myocardial infarct finding no longer present Electronically Signed On 04-08-2023 4:14:59 CDT by Krystal Peralta M.D. [id number]
[2023-04-08 01:36] LABS: ABG PCO2 42.5 mmHg (35-45); ABG PH Result 7.37 (7.35-7.45); Arterial Blood Gas Hematocrit 51.5 % (42-52); Blood Gas Operator Identificat AMH; Blood Gas Sample Site Brachial, right; Blood Gas Sample Type Arterial; Carboxyhemoglobin 5.4 %THgb (0.4-20.1); HCO3 ABG 24.5 mmol/L (22-26); HGB O2 Sat 89.4 % (95-100); Ionized Calcium Level - ABG 1.2 mmol/L (1.1-1.4); Methemoglobin 0.6 % (0.4-1.5); Oxygen Device ROOM AIR; Oxygen Saturation ABG 95.2; PO2 ABG 73.7 mmHg (80.0-100.0); Potassium Level - ABG 3.6 mmol/L (3.5-5.0); Total Hemoglobin 16.8 g/dL (14-18)
[2023-04-08 01:37] LABS: Basophils # 0.1 10^3/uL (0.0-0.1); Basophils % 0.6 %; Eosinophils # 0.2 10^3/uL (0.0-0.8); Eosinophils % 1.8 %; Hematocrit 47.7 % (42.0-52.0); Hemoglobin 16.1 g/dL (11.7-16.6); Lymphocytes # 1.8 10^3/uL (0.8-4.8); Lymphocytes % 19.8 %; Mean Corpuscular HGB Conc 33.8 g/dL (30.0-36.0); Mean Corpuscular Hemoglobin 29.1 pg (28.0-34.0); Mean Corpuscular Volume 86.1 fl (80-94); Mean Platelet Volume 9.3 fL (7.4-10.4); Monocytes # 0.8 10^3/uL (0.2-0.9); Monocytes % 8.7 %; Neutrophils # 6.13 10^3/uL (1.8-7.7); Neutrophils % 68.8 %; Nucleated Red Blood Cells % 0 %; Platelet Count 227 10^3/cmm (130-400); Red Blood Count 5.54 10^6/uL (4.1-5.3); White Blood Count 8.9 10^3/uL (4.0-10.0)
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
[2023-04-08 01:51] LABS: Troponin(5th) Baseline 11 ng/L (0-15)
[2023-04-08 01:52] LABS: Lactic Sepsis W/Reflex 2.3 mmol/L (0.5-2.2)
[2023-04-08 01:53] LABS: Alanine Aminotransferase 16 U/L (0-41); Albumin Level 4.2 g/dL (3.5-5.2); Alcohol Level 216 mg/dL (0-10); Alkaline Phosphatase 76 U/L (40-130); Anion Gap 17.5 (5-19); Aspartate Amino Transferase 15 U/L (0-40); Blood Urea Nitrogen 14 mg/dL (6-20); Calcium 8.6 mg/dL (8.5-10.5); Carbon Dioxide 23 mmol/L (22-29); Chloride 103 mmol/L (98-107); Globulin 3.3 g/dL (1.3-4.6); Glucose 107 mg/dL (65-115); Osmolality Calculated 291 mOsm/kg (285-295); Potassium 3.5 mmol/L (3.5-5.1); Sodium 140 mmol/L (136-145); Total Bilirubin 0.2 mg/dL (0.15-1.2); Total Protein 7.5 g/dL (6.6-8.7)
[2023-04-08 01:56] LABS: Acetaminophen < 5.0 ug/mL (10-30); Salicylate < 0.3 mg/dL (3-10)
[2023-04-08 02:07] LABS: Glucose Point of Care 130 mg/dL (70-110)
[2023-04-08] MEDS: haloperidol inj 5 mg/mL INJ 1 mL 2 MG IVP (02:31)
[2023-04-08] MEDS: LORazepam 2 mg/mL INJ 1 mL 1 MG IVP (02:33)
[2023-04-08 02:37] LABS: Amphetamines Screen Urine Negative (Negative); Barbiturates Screen Urine Negative (Negative); Benzodiazepines Screen Urine Negative (Negative); Cocaine Screen Urine Negative (Negative); Opiate Screen Urine Negative (Negative); PCP Screen Urine Negative (Negative); THC Screen Urine Negative (Negative)
[2023-04-08 03:17] LABS: Reflex Lactate Order REFLEX LACTIC ORDERD
[2023-04-08 03:24] LABS: Troponin 5 2HR 13.84 ng/L (0-15)
--- NOTE | 2023-04-08 03:25 | ECG_ITS ---
[facility] Test Date: 2023-04-08 Pat Name: Junior Ford Department: Room: Gender: Male Match Marker: : 1970 Requested By: Austin Barrow Order Number: [id number] Cervantes MD: Krystal Peralta M.D. Measurements Intervals [place] Rate: 73 P: 70 CO: 148 QRS: -1 QRSD: 128 T: 66 QT: 398 QTc: 440 Interpretive Statements SINUS RHYTHM Compared to ECG 04/08/2023 01:49:03 Indeterminate axis no longer present Electronically Signed On 04-08-2023 4:17:13 CDT by Krystal Peralta M.D. [id number]
[2023-04-08 03:36] LABS: Troponin 5 2HR Delta 2.84 ABS# (0-10)
--- NOTE | 2023-04-08 03:36 | PC.NURSE ---
2nd EKG completed. Gown noted to be wet, so new gown applied. Pt is sedated at this time from medication, but does follow verbal commands to scoot up in bed. Pt placed in semi-france's position. VSS.
--- NOTE | 2023-04-08 03:54 | PC.NURSE ---
Report given to Jory in NPU. Pt being held in ER at this time, so report given to MIHAI Carney in ER to assume care at this time. Bedside report given.
[2023-04-08 04:31] LABS: Lactic Acid level (Lactate) 2.3 mmol/L (0.5-2.2)
--- NOTE | 2023-04-08 07:11 | ECG_ITS ---
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 Measurements Intervals [place] Rate: 67 P: 49 SC: 149 QRS: 37 QRSD: 123 T: 56 QT: 404 QTc: 429 Interpretive Statements SINUS RHYTHM Compared to ECG 04/08/2023 03:25:09 No significant changes Electronically Signed On 04-08-2023 9:52:18 CDT by Krystal Peralta M.D. [id number]
[2023-04-08 07:41] LABS: Troponin 5 6HR 10.46 ng/L (0-15)
[2023-04-08 08:19] LABS: Troponin 5 6HR Delta -0.54 ng/L (0-12)
--- NOTE | 2023-04-08 08:44 | PC.NURSE ---
Pt abusable by verbal command. Pt states he is feeling better. Freya adan to speak with pt. Pt will be transferred to NPU after his arrival.
[2023-04-08] MEDS: nicotine 21 mg Patch 1 PATCH TRANSDERMA (14:44)
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
[2023-04-08] MEDS: hyDROXYzine 25 mg Capsule 50 MG PO (18:30)
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
[2023-04-09 06:00] VITALS: BP 121/77; PULSE 85; RESP 16; TEMP 36.8; O2SAT 95
[2023-04-09] MEDS: thiamine 100 mg Tablet PO (08:51)
[2023-04-09] MEDS: nicotine 21 mg Patch 1 PATCH TRANSDERMA (08:51)
[2023-04-09] MEDS: folic acid 1 mg Tablet PO (08:51)
[2023-04-09] MEDS: multivitamin therapeutic Tablet 1 TAB PO (08:51)
[2023-04-09 14:00] VITALS: BP 116/70; PULSE 73; RESP 16; TEMP 36.6; O2SAT 96
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
[2023-04-09] MEDS: escitalopram 10 mg Tablet PO (18:54)
[2023-04-09] MEDS: trazodone 50 mg Tablet PO (20:42)
[2023-04-09 22:00] VITALS: BP 133/74; PULSE 80; RESP 19; TEMP 36.8; O2SAT 98
[2023-04-10 06:00] VITALS: BP 110/69; PULSE 79; RESP 16; O2SAT 98
[2023-04-10] MEDS: escitalopram 10 mg Tablet PO (09:04)
[2023-04-10] MEDS: folic acid 1 mg Tablet PO (09:04)
[2023-04-10] MEDS: thiamine 100 mg Tablet PO (09:04)
[2023-04-10] MEDS: multivitamin therapeutic Tablet 1 TAB PO (09:04)
[2023-04-10] MEDS: nicotine 21 mg Patch 1 PATCH TRANSDERMA (09:18)
--- NOTE | 2023-04-10 12:07 | XR_ITS ---
WS: [id number] XR knee LT 1-2V 21984 REASON FOR EXAM: pain FINDINGS: No fracture or focal bone lesion. The joint spaces of the left knee are intact and well preserved. Mild subchondral sclerosis in the me dial knee joint compartment. XR/XR knee LT 1-2V 20817 IMPRESSION: Minimal osteoarthritis of the left knee as above.
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
[2023-04-10 13:52] VITALS: BP 110/69; PULSE 79; RESP 16; O2SAT 98
--- NOTE | 2023-04-10 14:06 | DCPLANNER ---
IMM completed 04/10/23 @3230. Pt was given a copy of rights and he stated he understood his rights.
== END 2023-04-10 14:18 | disposition home or self-care (01) | DRG 881 ==
LOC: ER 02:59 → NP 04:33
PROVIDERS: Admitting Provider Psychiatry & Neurology Psychiatry; Emergency Provider Emergency Medicine; PCP Family Medicine; Visit Provider Psychiatry & Neurology Psychiatry
DX: F43.21 Adjustment disorder with depressed mood (principal); B20 Human immunodeficiency virus [HIV] disease; F10.10 Alcohol abuse, uncomplicated; F10.129 Alcohol abuse with intoxication, unspecified; Y90.7 Blood alcohol level of 200-239 mg/100 ml; I25.10 Atherosclerotic heart disease of native coronary artery without angina pectoris; Z95.1 Presence of aortocoronary bypass graft; F43.25 Adjustment disorder with mixed disturbance of emotions and conduct; Z88.0 Allergy status to penicillin; Z79.899 Other long term (current) drug therapy; Z79.51 Long term (current) use of inhaled steroids; Z79.02 Long term (current) use of antithrombotics/antiplatelets
CPT/HCPCS: 36415; 36416; 36600; 71045; 73560; 80051; 80053; 80306; 80307; 82330; 82805; 82962; 83605; 84484; 85025; 93005; 96374; 96375; 97150; 97165; 99238; 99285; J1630; J2060

== ENCOUNTER → 2023-07-09 10:55 | Outpatient (BNVA) | payer MEDICARE, SELFPAY | PROVIDERS: PCP Family Medicine; Visit Provider Registered Nurse | DX: Z79.899 Other long term (current) drug therapy (principal); F32.A Depression, unspecified; G47.00 Insomnia, unspecified | CPT/HCPCS: 80053; 80061; 82306; 82607; 83036; 85025 ==

== ENCOUNTER 2023-09-13 17:49 | Emergency (ER) | payer MEDICARE, MEDICAID, SELFPAY ==
[2023-09-13 17:50] VITALS: BMI 32.1
[2023-09-13 17:53] VITALS: BP 131/79; PULSE 103; RESP 17; TEMP 37.3; O2SAT 95
--- NOTE | 2023-09-13 17:53 | ED_ITS ---
Documented by User: Hayes Mcgrath DO 09/14/23 06:30 HPI - SOB/Dyspnea 2 General: Chief Complaint: Shortness of Breath/Dyspnea Stated Complaint: SOB Time Seen by Provider: 09/13/23 17:53 Source: patient Mode of arrival: EMS History of Present Illness: HPI Narrative: 52-year-old male presents emergency room with complaint of productive cough for the last 2 days thin mucousy cough he said quite a bit of nausea as well no vomiting denies any hemoptysis. He does have a history of HIV his CD4 counts have been good his primary care doctor manages his medications. He is not on any pneumocystis dorcas prophylaxis. He does have a history of asthma he states he has been using his albuterol inhaler with minimal relief of symptoms. MD elicited complaint: shortness of breath and cough Pertinent past history: asthma Onset (ago): day(s) (2) Timing: constant and progressively worsening Severity: mild Exacerbating factors: coughing and inspiration Relieving factors: rest Known history of: asthma Associated symptoms: Deny abdominal pain, chest pain or fever(s) Treatment prior to arrival: oxygen Review of Systems 2 Const: Denies: fever(s) or chills Card: Denies: chest pain Resp: Reports: dyspnea, non-productive cough and wheezing (Scant) GI: Denies: abdominal pain : Denies: dysuria, urinary frequency or urinary urgency Musc: Denies: neck pain or back pain Skin/Breast: Denies: rash PFSH ED 2 PFSH: Medical History Insomnia Psychiatric care Depression HIV (human immunodeficiency virus infection) Surgical History History of coronary artery bypass graft Physical Exam 2 Const: GENERAL APPEARANCE: cooperative and comfortable O RIENTATION/CONSCIOUSNESS: Yes awake, Yes oriented to person, Yes oriented to place and Yes oriented to time HENMT: COMMON NORMALS: normocephalic, atraumatic and hearing grossly normal bilaterally HEAD & SCALP: normocephalic and atraumatic Resp: COMMON NORMALS: normal respiratory effort, No retractions and No use of accessory muscles AUSCULTATION: wheezes Cardio: COMMON NORMALS: regular rate, regular rhythm and No murmurs present (Cardio) RATE: regular rate RHYTHM: regular rhythm GI: COMMON NORMALS: Soft to palpation and No hepatosplenomegaly present A USCULTATION: Yes normoactive bowel sounds PALPATION: Yes Soft to palpation, No Tenderness to palpation present (GI), No Guarding due to palpation present (GI) and Yes No hepatosplenomegaly present Extremity: COMMON NORMALS: normal to inspection, capillary refill normal, no clubbing, cyanosis or edema, no calf tenderness and no pedal edema Neuro: SENSORIUM/ORIENTATION: Yes oriented to person, Yes oriented to place and Yes oriented to time Skin: COMMON NORMALS: no rashes or lesions noted GENERAL SKIN EXAM: no rashes or lesions noted Course 2 Vital Signs: Vital signs: Vital Signs Temperature 99.1 F 09/13/23 17:53 Pulse Rate 99 09/13/23 19:49 Respiratory Rate 18 09/13/23 19:49 Blood Pressure 126/74 09/13/23 19:49 Pulse Oximetry 92 09/13/23 19:49 Oxygen Delivery Me thod Room Air 09/13/23 19:41 MDM - SOB/Dyspnea Medical Decision Making Care signed out to Dr. Garcia at change of shift. See final notes for diagnosis and disposition. 52-year-old male with hx of HIV. Checked out to me at shift change. This patient has been coughing and short of breath. He is afebrile here, temperature 99.1. Hemoglobin is 17. White blood cell count is 6.6 with a normal differential. X-ray shows atelectasis versus minimal infiltrate in the right lower lobe. With his history, will elect to treat. He is receiving Rocephin and Zithromax here. He will go home on cefdinir and Zithromax. He is also received IV dexamethasone here, as well as DuoNeb treatments. He has a nebulizer machine at home for which he has albuterol. Lab Data 09/13/23 18:22 09/13/23 18:22 Labs/Radiology: Radiology Impressions Chest X-Ray 09/13/23 17:54 IMPRESSION: Right lower lobe atelectasis versus minimal infiltrate. Laboratory Results WBC 6.60 10^3/uL (3.29-11.43) 09/13/23 18:22 RBC 5.69 10^6/uL (3.85-5.65) H 09/13/23 18: Hgb 17.30 g/dL (11.27-16.99) H 09/13/23 18: Hct 50.2 % (37-53) 09/13/23 18: MCV 88.2 fl (82-101) 09/13/23 18: MCH 30.4 pg (27-33) 09/13/23 18: MCHC 34.5 g/dL (30-55) 09/13/23 18: RDW 13.4 % (12.1-15.1) 09/13/23 18: Plt Count 228 10^3/cmm (157-399) 09/13/23 18: MPV 9.9 fL (7.4-10.4) 09/13/23 18: Neut % (Auto) 59.1 % 09/13/23 18: Lymph % (Auto) 23.9 % 09/13/23 18: [place] % (Auto) 11.4 % 09/13/23 18: Eos % (Auto) 4.8 % 09/13/23 18: Baso % (Auto) 0.5 % 09/13/23 18: Neut # (Auto) 3.90 10^3/uL (1.8-7.7) 09/13/23 18: Lymph # (Auto) 1.6 10^3/uL (0.8-4.8) 09/13/23 18: [place] # (Auto) 0.8 10^3/uL (0.2-0.9) 09/13/23 18: Eos # (Auto) 0.3 10^3/uL (0.0-0.8) 09/13/23: Baso # (Auto) 0.0 10^3/uL (0.0-0.1) 09/13/23 18: Nucleated RBC % (auto) 0 % 09/13/23: Nucleated RBCs # 0.0 /100WBC 09/13/23 18: Sodium 135 mmol/L (136-145) L 09/13/23 18: Potassium 4.0 mmol/L (3.5-5.1) 09/13/23 18: Chloride 102 mmol/L (98-107) 09/13/23 18:22 Carbon Dioxide 22 mmol/L (22-29) 09/13/23 18:22 Anion Gap 15.0 (5-19) 09/13/23 18:22 BUN 8 mg/dL (6-20) 09/13/23 18:22 Creatinine 1.0 mg/dL (0.7-1.2) 09/13/23 18:22 GFR Calculation 78.8 mL/min (90-130) L 09/13/23 18:22 Glucose 91 mg/dL (65-115) 09/13/23 18:22 Calculated Osmolality 278 mOsm/kg (285-295) L 09/13/23 18:22 Lactic Acid 1.2 mmol/L (0.5-2.2) 09/13/23 18: Calcium 8.4 mg/dL (8.5-10.5) L 09/13/23 18:22 Total Bilirubin 0.3 mg/dL (0.15-1.2) 09/13/23 18: AST 18 U/L (0-40) 09/13/23 18:22 ALT 18 U/L (0-41) 09/13/23 18:22 Alkaline Phosphatase 72 U/L (40-130) 09/13/23 18:22 NT-Pro-B Natriuret Pep 287 pg/mL (0-125) H 09/13/23 18:22 Total Protein 8.1 g/dL (6.6-8.7) 09/13/23 18: Albumin 4.3 g/dL (3.5-5.2) 09/13/23 18: Globulin 3.8 g/dL (1.3-4.6) 09/13/23 18:22 Coronavirus 229E (PCR) Not detected (NOT DETECT) 09/13/23 18:22 Influenza Type A Ag negative (Negative) 09/13/23 18: Influenza Type B Ag negative (Negative) 09/13/23 18: RSV Type A (PCR) Not detected (NOT DETECT) 09/13/23 22:18 RSV Type B (PCR) Detected (NOT DETECT) A 09/13/23 22:18 SARS-CoV-2 (PCR) Not detected (NOT DETECT) 09/13/23 18: Discharge Plan Discharge Patient Disposition: Home Clinical Impression: Community acquired pneumonia Condition: Stable Prescriptions: New cefdinir 300 mg capsule 300 mg PO BID Qty: 14 0RF Zithromax 250 mg tablet See Rx Instructions .ROUTE .COMPLEX Qty: 6 0RF Rx Instructions: For 250 mg dose pack: take 500 mg today (day 1), then 250 mg for 4 days (days 2-5) albuterol sulfate 90 mcg/actuation HFA aerosol inhaler 2 inh inhalation Q4H PRN (Reason: shortness of breath or wheezing) Qty: 6.7 1RF No Action carvedilol 3.125 mg tablet 3.125 mg PO BID Rx Instructions: must administer with a meal/food amitriptyline 10 mg tablet See Rx Instructions .ROUTE .COMPLEX Qty: 60 3RF Dose Instruction: TAKE 1 TO 2 TABLETS BY MOUTH ONCE DAILY Rx Instructions: TAKE 1 TO 2 TABLETS BY MOUTH ONCE DAILY albuterol sulfate 2.5 mg /3 mL (0.083 %) Solution For Nebulization 2.5 mg INHALATION Q6H Qty: 90 1RF Plavix 75 mg Tablet 75 mg PO DAILY 30 Days Qty: 30 1RF triamcinolone acetonide 0.1 % cream 1 applic TOPICAL BID Qty: 30 0RF lisinopril 5 mg Tablet 5 mg PO BID Qty: 60 1RF albuterol sulfate 90 mcg/actuation Hfa Aerosol Inhaler 2 puff INHALATION Q4H PRN (Reason: Shortness Of Breath Or Wheezing) 30 Days Qty: 6.7 1RF escitalopram oxalate 10 mg Tablet 10 mg PO DAILY 30 Days Qty: 30 1RF Atripla 600-200-300 mg tablet 1 tab PO DAILY 30 Days Qty: 30 1RF Rx Instructions: must be taken on empty stomach Vitamin B-1 (mononitrate) 100 mg Tablet 100 mg PO DAILY 30 Days Qty: 30 1RF Discharge Orders: Discharge ED (Routine); Ordered 09/13/23 Ordered By: Robert Garcia Referrals: Radha Holt MD [Primary Care Provider] - 4-7 days Patient Instructions: Pneumonia (ED), Opioid Safety, Pain Management Activity Restrictions/Additional Instructions: Use your nebulizer machine every 4 hours while awake scheduled whether you feel you needed or not for the next 48 hours, then as needed following. Antibiotics as directed. Return for worsening shortness of breath despite treatment, worsening cough despite treatment, fever despite 3 more doses of antibiotics or more, other concerning symptoms. Coding Level of Care Code ED Dormitory Counselor for Chg Fwd Documented by User: Robert Garcia DO 09/13/23 19:31 HPI - SOB/Dyspnea 2 General: Chief Complaint: Shortness of Breath/Dyspnea Stated Complaint: SOB Time Seen by Provider: 09/13/23 17:53 PFSH ED 2 PFSH: Medical History Insomnia Psychiatric care Depression HIV (human immunodeficiency virus infection) Surgical History History of coronary artery bypass graft Course 2 Vital Signs: Vital signs: Vital Signs Temperature 99.1 F 09/13/23 17:53 Pulse Rate 99 09/13/23 19:49 Respiratory Rate 18 09/13/23 19:49 Blood Pressure 126/74 09/13/23 19:49 Pulse Oximetry 92 09/13/23 19:49 Oxygen Delivery Me thod Room Air 09/13/23 19:41 MDM - SOB/Dyspnea Medical Decision Making 52-year-old male with hx of HIV. Checked out to me at shift change. This patient has been coughing and short of breath. He is afebrile here, temperature 99.1. Hemoglobin is 17. White blood cell count is 6.6 with a normal differential. X-ray shows atelectasis versus minimal infiltrate in the right lower lobe. With his history, will elect to treat. He is receiving Rocephin and Zithromax here. He will go home on cefdinir and Zithromax. He is also received IV dexamethasone here, as well as DuoNeb treatments. He has a nebulizer machine at home for which he has albuterol. Lab Data 09/13/23 18:22 09/13/23 18:22 Labs/Radiology: Radiology Impressions Chest X-Ray 09/13/23 17:54 IMPRESSION: Right lower lobe atelectasis versus minimal infiltrate. Laboratory Results WBC 6.60 10^3/uL (3.29-11.43) 09/13/23 18: RBC 5.69 10^6/uL (3.85-5.65) H 09/13/23 18:22 Hgb 17.30 g/dL (11.27-16.99) H 09/13/23 18:22 Hct 50.2 % (37-53) 09/13/23 18: MCV 88.2 fl (82-101) 09/13/23 18: MCH 30.4 pg (27-33) 09/13/23 18: MCHC 34.5 g/dL (30-55) 09/13/23 18: RDW 13.4 % (12.1-15.1) 09/13/23 18: Plt Count 228 10^3/cmm (157-399) 09/13/23 18: MPV 9.9 fL (7.4-10.4) 09/13/23 18: Neut % (Auto) 59.1 % 09/13/23 18: Lymph % (Auto) 23.9 % 09/13/23 18: [place] % (Auto) 11.4 % 09/13/23 18: Eos % (Auto) 4.8 % 09/13/23 18: Baso % (Auto) 0.5 % 09/13/23 18: Neut # (Auto) 3.90 10^3/uL (1.8-7.7) 09/13/23 18: Lymph # (Auto) 1.6 10^3/uL (0.8-4.8) 09/13/23 18: [place] # (Auto) 0.8 10^3/uL (0.2-0.9) 09/13/23 18: Eos # (Auto) 0.3 10^3/uL (0.0-0.8) 09/13/23 18: Baso # (Auto) 0.0 10^3/uL (0.0-0.1) 09/13/23 18: Nucleated RBC % (auto) 0 % 09/13/23 18:22 Nucleated RBCs # 0.0 /100WBC 09/13/23 18:22 Sodium 135 mmol/L (136-145) L 09/13/23 18:22 Potassium 4.0 mmol/L (3.5-5.1) 09/13/23 18:22 Chloride 102 mmol/L (98-107) 09/13/23 18:22 Carbon Dioxide 22 mmol/L (22-29) 09/13/23 18:22 Anion Gap 15.0 (5-19) 09/13/23 18:22 BUN 8 mg/dL (6-20) 09/13/23 18:22 Creatinine 1.0 mg/dL (0.7-1.2) 09/13/23 18:22 GFR Calculation 78.8 mL/min (90-130) L 09/13/23 18:22 Glucose 91 mg/dL (65-115) 09/13/23 18:22 Calculated Osmolality 278 mOsm/kg (285-295) L 09/13/23 18:22 Lactic Acid 1.2 mmol/L (0.5-2.2) 09/13/23 18:22 Calcium 8.4 mg/dL (8.5-10.5) L 09/13/23 18:22 Total Bilirubin 0.3 mg/dL (0.15-1.2) 09/13/23 18:22 AST 18 U/L (0-40) 09/13/23 18:22 ALT 18 U/L (0-41) 09/13/23 18:22 Alkaline Phosphatase 72 U/L (40-130) 09/13/23 18:22 NT-Pro-B Natriuret Pep 287 pg/mL (0-125) H 09/13/23 18:22 Total Protein 8.1 g/dL (6.6-8.7) 09/13/23 18:22 Albumin 4.3 g/dL (3.5-5.2) 09/13/23 18:22 Globulin 3.8 g/dL (1.3-4.6) 09/13/23 18:22 Coronavirus 229E (PCR) Not detected (NOT DETECT) 09/13/23 18:22 Influenza Type A Ag negative (Negative) 09/13/23 18:22 Influenza Type B Ag negative (Negative) 09/13/23 18:22 RSV Type A (PCR) Not detected (NOT DETECT) 09/13/23 22:18 RSV Type B (PCR) Detected (NOT DETECT) A 09/13/23 22:18 SARS-CoV-2 (PCR) Not detected (NOT DETECT) 09/13/23 18:22 All radiology interpretation(s) finalized by discharge Discharge Plan Discharge Patient Disposition: Home Clinical Impression: Community acquired pneumonia Condition: Stable Prescriptions: New cefdinir 300 mg capsule 300 mg PO BID Qty: 14 0RF Zithromax 250 mg tablet See Rx Instructions .ROUTE .COMPLEX Qty: 6 0RF Rx Instructions: For 250 mg dose pack: take 500 mg today (day 1), then 250 mg for 4 days (days 2-5) albuterol sulfate 90 mcg/actuation HFA aerosol inhaler 2 inh inhalation Q4H PRN (Reason: shortness of breath or wheezing) Qty: 6.7 1RF No Action carvedilol 3.125 mg tablet 3.125 mg PO BID Rx Instructions: must administer with a meal/food amitriptyline 10 mg tablet See Rx Instructions .ROUTE .COMPLEX Qty: 60 3RF Dose Instruction: TAKE 1 TO 2 TABLETS BY MOUTH ONCE DAILY Rx Instructions: TAKE 1 TO 2 TABLETS BY MOUTH ONCE DAILY albuterol sulfate 2.5 mg /3 mL (0.083 %) Solution For Nebulization 2.5 mg INHALATION Q6H Qty: 90 1RF Plavix 75 mg Tablet 75 mg PO DAILY 30 Days Qty: 30 1RF triamcinolone acetonide 0.1 % cream 1 applic TOPICAL BID Qty: 30 0RF lisinopril 5 mg Tablet 5 mg PO BID Qty: 60 1RF albuterol sulfate 90 mcg/actuation Hfa Aerosol Inhaler 2 puff INHALATION Q4H PRN (Reason: Shortness Of Breath Or Wheezing) 30 Days Qty: 6.7 1RF escitalopram oxalate 10 mg Tablet 10 mg PO DAILY 30 Days Qty: 30 1RF Atripla 600-200-300 mg tablet 1 tab PO DAILY 30 Days Qty: 30 1RF Rx Instructions: must be taken on empty stomach Vitamin B-1 (mononitrate) 100 mg Tablet 100 mg PO DAILY 30 Days Qty: 30 1RF Discharge Orders: Discharge ED (Routine); Ordered 09/13/23 Ordered By: Robert Garcia Referrals: Radha Holt MD [Primary Care Provider] - 4-7 days Patient Instructions: Pneumonia (ED), Opioid Safety, Pain Management Activity Restrictions/Additional Instructions: Use your nebulizer machine every 4 hours while awake scheduled whether you feel you needed or not for the next 48 hours, then as needed following. Antibiotics as directed. Return for worsening shortness of breath despite treatment, worsening cough despite treatment, fever despite 3 more doses of antibiotics or more, other concerning symptoms. Coding Level of Care Code ED Dormitory Counselor for Jacky Carvajal
--- NOTE | 2023-09-13 17:54 | XRR_ITS ---
PROCEDURE INFORMATION: Exam: XR Chest Exam date and time: 09/13/2023 6:35 PM Age: 52 years old Clinical indication: Cough and shortness of breath; Prior surgery; Surgery date: 6+ months; Surgery type: Cabg. Valve replacement. Pacer. Patient HX: Cough with SOB. ; Additional info: Dyspnea/cough TECHNIQUE: Imaging protocol: Radiologic exam of the chest. Views: 1 view. COMPARISON: CR XR chest 1V portable [id number] 04/08/2023 1:24 AM FINDINGS: Tubes, catheters and devices: Pacemaker. Lungs: Right lower lobe atelectasis versus minimal infiltrate. Pleural spaces: Unremarkable. No pleural effusion. No pneumothorax. Heart/Mediastinum: Unremarkable. No cardiomegaly. Bones/joints: Sternotomy wires. XR/XR chest 1V portable [id number] IMPRESSION: Right lower lobe atelectasis versus minimal infiltrate.
--- NOTE | 2023-09-13 18:34 | ECG_ITS ---
[facility] Test Date: 2023-09-13 Pat Name: Junior Ford Department: Room: Gender: Male Residential Manager: : 1970 Requested By: Hayes Baez Order Number: [id number] Billy MD: Rodrigo Gautam M.D. Measurements Intervals [place] Rate: 89 P: 74 UT: 153 QRS: 56 QRSD: 126 T: 66 QT: 353 QTc: 429 Interpretive Statements SINUS RHYTHM Compared to ECG 04/08/2023 07:16:14 No significant changes Electronically Signed On 09-14-2023 15:54:03 TAX SENIOR ASSOCIATE by Rodrigo Gautam M.D. [id number]
[2023-09-13 18:35] LABS: Basophils % 0.5 %; Eosinophils # 0.3 10^3/uL (0.0-0.8); Eosinophils % 4.8 %; Hematocrit 50.2 % (37-53); Lymphocytes # 1.6 10^3/uL (0.8-4.8); Lymphocytes % 23.9 %; Mean Corpuscular HGB Conc 34.5 g/dL (30-55); Mean Corpuscular Hemoglobin 30.4 pg (27-33); Mean Corpuscular Volume 88.2 fl (82-101); Mean Platelet Volume 9.9 fL (7.4-10.4); Monocytes # 0.8 10^3/uL (0.2-0.9); Monocytes % 11.4 %; Neutrophils % 59.1 %; Nucleated Red Blood Cells % 0 %; Platelet Count 228 10^3/cmm (157-399); Red Blood Count 5.69 10^6/uL (3.85-5.65); Red Cell Distribution Width 13.4 % (12.1-15.1)
[2023-09-13 18:36] VITALS: BP 137/79; PULSE 91; RESP 16; O2SAT 92
[2023-09-13 18:49] LABS: Lactic Sepsis W/Reflex 1.2 mmol/L (0.5-2.2)
[2023-09-13 18:52] LABS: Influenza A by IFA negative (Negative); Influenza B by IFA negative (Negative)
[2023-09-13 19:01] LABS: Alanine Aminotransferase 18 U/L (0-41); Albumin Level 4.3 g/dL (3.5-5.2); Alkaline Phosphatase 72 U/L (40-130); Aspartate Amino Transferase 18 U/L (0-40); Blood Urea Nitrogen 8 mg/dL (6-20); Calcium 8.4 mg/dL (8.5-10.5); Carbon Dioxide 22 mmol/L (22-29); Chloride 102 mmol/L (98-107); Globulin 3.8 g/dL (1.3-4.6); Glomerular Filtration Rate 78.8 mL/min (90-130); Glucose 91 mg/dL (65-115); NT Pro B Type Natriuretic Pept 287 pg/mL (0-125); Osmolality Calculated 278 mOsm/kg (285-295); Sodium 135 mmol/L (136-145); Total Bilirubin 0.3 mg/dL (0.15-1.2); Total Protein 8.1 g/dL (6.6-8.7)
[2023-09-13] MEDS: ondansetron 2 mg/ML SDV 2 mL 4 MG IVP (19:27)
[2023-09-13] MEDS: dexamethasone 4 mg/mL INJ 8 MG IVP (19:28)
[2023-09-13] MEDS: azithromycin 250 mg Tablet 500 MG PO (19:31)
[2023-09-13] MEDS: cefTRIAXone 1,000 MG in sodium chloride 0.9% (plus) 50 ML 100 MG IV (19:32)
[2023-09-13 19:41] VITALS: PULSE 101; RESP 18; O2SAT 92
[2023-09-13] MEDS: ipratropium-albuterol 3 mL Neb INHALATION (19:44)
[2023-09-13 19:46] VITALS: PULSE 96
[2023-09-13 19:49] VITALS: BP 126/74; PULSE 99; RESP 18; O2SAT 92
[2023-09-13 22:03] LABS: Adenovirus Not Detected (NOT DETECT); Chlamydia Pneumoniae Not Detected (NOT DETECT); Coronavirus 229E,HKU1,NL63,OC4 Not Detected (NOT DETECT); Human Metapneumovirus Not Detected (NOT DETECT); Human Rhinovirus/Enterovirus Not Detected (NOT DETECT); Influenza A Not Detected (NOT DETECT); Influenza A H1 Not Detected (NOT DETECT); Influenza A H1-2009 Not Detected (NOT DETECT); Influenza A H3 Not Detected (NOT DETECT); Influenza B Not Detected (NOT DETECT); Mycoplasma Pneumoniae Not Detected (NOT DETECT); Parainfluenza Virus Type 1 Not Detected (NOT DETECT); Parainfluenza Virus Type 2 Not Detected (NOT DETECT); Parainfluenza Virus Type 3 Not Detected (NOT DETECT); Parainfluenza Virus Type 4 Not Detected (NOT DETECT); Respiratory Syncytial Virus A Not Detected (NOT DETECT); Respiratory Syncytial Virus B Detected (NOT DETECT); SARS-COV-2 Not Detected (NOT DETECT)
[2023-09-13 22:18] LABS: Respiratory Syncytial Virus A Not Detected (NOT DETECT); Results from Genmark
[2023-09-13 22:19] LABS: Respiratory Syncytial Virus B Detected (NOT DETECT)
== END 2023-09-13 20:35 | disposition home or self-care (01) ==
PROVIDERS: Family Medicine; Emergency Provider Emergency Medicine; PCP Family Medicine
DX: J18.9 Pneumonia, unspecified organism (principal); Z79.02 Long term (current) use of antithrombotics/antiplatelets; Z11.52 Encounter for screening for COVID-19; B20 Human immunodeficiency virus [HIV] disease; Z95.1 Presence of aortocoronary bypass graft
CPT/HCPCS: 71045; 80053; 83605; 83880; 85025; 87635; 87801; 87804; 93005; 94640; 96365; 96375; 99285; J0696; J1100; J2405; Q0144

== ENCOUNTER 2023-09-14 10:33 | Emergency (ER) | payer MEDICARE, MEDICAID, SELFPAY ==
--- NOTE | 2023-09-14 10:54 | XR_ITS ---
WS: [id number] Exam: XR chest 1V portable [id number] Date/Time of Exam: 09/14/2023 10:54 AM Reason For Exam: sob Comparison 09/13/2023. The lungs are clear and fully expanded. Normal cardiomediastinal silhouette. Signs of previous CABG s urgery. A cardiac pacer superimposes the LEFT chest. No pleural effusion. Bony structures are intact. IMPRESSION: 1. No acute cardiopulmonary finding.
[2023-09-14 11:20] VITALS: BP 176/93; PULSE 102; RESP 20; TEMP 36.6; O2SAT 93; BMI 32.1
[2023-09-14 12:48] LABS: Basophils % 0.4 %; Eosinophils % 0.1 %; Hematocrit 53.1 % (37-53); Lymphocytes # 1.6 10^3/uL (0.8-4.8); Lymphocytes % 14.5 %; Mean Corpuscular HGB Conc 34.1 g/dL (30-55); Mean Corpuscular Hemoglobin 30.5 pg (27-33); Mean Corpuscular Volume 89.5 fl (82-101); Mean Platelet Volume 9.9 fL (7.4-10.4); Monocytes # 0.8 10^3/uL (0.2-0.9); Monocytes % 6.9 %; Neutrophils # 8.55 10^3/uL (1.8-7.7); Neutrophils % 77.9 %; Nucleated Red Blood Cells % 0 %; Platelet Count 259 10^3/cmm (157-399); Red Blood Count 5.93 10^6/uL (3.85-5.65); Red Cell Distribution Width 13.4 % (12.1-15.1); White Blood Count 10.97 10^3/uL (3.29-11.43)
[2023-09-14 13:19] LABS: Alanine Aminotransferase 17 U/L (0-41); Albumin Level 4.6 g/dL (3.5-5.2); Alkaline Phosphatase 76 U/L (40-130); Aspartate Amino Transferase 24 U/L (0-40); Blood Urea Nitrogen 12 mg/dL (6-20); Calcium 9.4 mg/dL (8.5-10.5); Carbon Dioxide 19 mmol/L (22-29); Chloride 104 mmol/L (98-107); Globulin 4.1 g/dL (1.3-4.6); Glomerular Filtration Rate 70.6 mL/min (90-130); Glucose 107 mg/dL (65-115); Osmolality Calculated 288 mOsm/kg (285-295); Sodium 139 mmol/L (136-145); Total Bilirubin 0.4 mg/dL (0.15-1.2); Total Protein 8.7 g/dL (6.6-8.7)
[2023-09-14 13:24] LABS: Procalcitonin 0.05 ng/mL (0-0.5)
[2023-09-14 13:33] LABS: Anion Gap 20.8 (5-19); Potassium 4.8 mmol/L (3.5-5.1)
--- NOTE | 2023-09-14 14:18 | W.ED.URI ---
HPI - URI/Sore Throat General: Chief Complaint: Upper Respiratory Infection Stated Complaint: sob Time Seen by Provider: 09/14/23 13:54 Source: patient Mode of arrival: ambulatory Limitations: no limitations History of Present Illness: Patient is a 52-year-old male presents emergency room with complaint of shortness of breath. He states he has had a minimally productive cough over the past 2 days. Some mild congestion. He was reportedly seen here in the emergency department yesterday and diagnosed with pneumonia. He was placed on antibiotics for this. Looking at previous labs it looks like patient tested positive for RSV. He does have a history of HIV. He states his CD4 counts have been good. Patient reports he has been using his albuterol inhaler and albuterol nebulizer. He has not been running fevers. MD elicited complaint: cough and other (sob) Pertinent past history: HIV Onset (ago): day(s) Consistency: constant Severity: moderate Description of mucous: clear Able to tolerate fluids by mouth: Yes Relieving factors: nothing Associated symptoms: Reports nausea and vomiting (post-tussive vomiting x 1); Deny abdominal pain, chills, chest pain, diarrhea, ear or mastoid pain, fever(s) or headache(s) Treatments prior to arrival: antibiotics Review of Systems Const: Denies: fever(s), chills, body aches, fatigue or malaise ENMT: Denies: throat pain, odynophagia or ear or mastoid pain Card: Denies: chest pain, palpitations, irregular heart rhythm, edema, swelling of feet/ankles, lightheadedness, syncope, pre-syncope, dyspnea on exertion, orthopnea, leg pain with exertion or acrocyanosis Resp: Reports: dyspnea, non-productive cough and chest congestion; Denies: wheezing, stridor or hemoptysis GI: Reports: nausea and vomiting (post-tussive vomiting x 1); Denies: abdominal pain, hematemesis or diarrhea : Denies: flank pain or dysuria Musc: Denies: neck pain, back pain, extremity pain or joint pain Skin/Breast: Denies: rash Neuro: Denies: headache(s), numbness in extremities, weakness in extremities, sensory changes or dizziness [facility] ED PFSH: Medical History Insomnia Psychiatric care Depression HIV (human immunodeficiency virus infection) Surgical History History of coronary artery bypass graft Physical Exam Const: COMMON NORMALS: no acute distress, average body habitus, patient oriented x3, no limitations, alert and well nourished GENERAL APPEARANCE: cooperative and anxious ORIENTATION/CONSCIOUSNESS: Yes awake, Yes oriented to person, Yes oriented to place and Yes oriented to time HENMT: COMMON NORMALS: normocephalic and atraumatic HEAD & SCALP: normal to inspection, normocephalic and atraumatic Eye: GENERAL EYE: appearance normal, both eyes and all related structures Neck/C-Spine: COMMON NORMALS: full ROM, no lymphadenopathy, supple, no meningeal signs and no JVD Chest: COMMONS NORMALS: normal inspection of the chest Resp: COMMON NORMALS: normal respiratory effort and clear to auscultation bilaterally EFFORT & INSPECTION: Yes tachypneic (mild-pt appearing anxious) AUSCULTATION: clear to auscultation bilaterally Cardio: COMMON NORMALS: no JVD, regular rate and regular rhythm RATE: regular rate RHYTHM: regular rhythm Extremity: COMMON NORMALS: normal to inspection and no pedal edema GENERAL: Yes normal exam except as noted Neuro: COMMON NORMALS: patient oriented x3 SENSORIUM/ORIENTATION: Yes alert, Yes oriented to person, Yes oriented to place and Yes oriented to time MENINGEAL SIGNS: Yes no meningeal signs Skin: COMMON NORMALS: no rashes or lesions noted GENERAL SKIN EXAM: no rashes or lesions noted Course Vital Signs: Vital signs: Vital Signs Temperature 97.8 F 09/14/23 11:20 Pulse Rate 102 H 09/14/23 14:41 Respiratory Rate 22 H 09/14/23 14:32 Blood Pressure 176/93 09/14/23 11:20 Pulse Oximetry 97 09/14/23 14:41 Oxygen Delivery Me thod Aerosol Mask 09/14/23 14:41 Oxygen Flow Rate 2 09/14/23 14:32 MDM - URI/Sore Throat Medical Decision Making Patient clinically appears in no acute distress. His vital signs are stable. At one point during his stay he did drop to 88-89% thus was placed on 2L O2 and now satting 97%. He states he feels better with the oxygen. Labs today are unremarkable. CXR radiology read is unremarkable. Yesterday's ED visit he did test positive for RSV. Symptoms most likely are all related to this. He was placed on antibiotic coverage. He has nebulizer and albuterol inhalers to continue using at home. We will have HOME bring him oxygen prior to discharge. I don't see a reason for hospitalization at this time as there will be little further to offer for his RSV illness other than symptomatic care. He is stable for home with his oxygen and given return precautions. Lab Data 09/14/23 12:17 09/14/23 12:17 Laboratory Results WBC 10.97 10^3/uL (3.29-11.43) 09/14/23 12:17 RBC 5.93 10^6/uL (3.85-5.65) H 09/14/23 12:17 Hgb 18.10 g/dL (11.27-16.99) H 09/14/23 12:17 Hct 53.1 % (37-53) H 09/14/23 12:17 MCV 89.5 fl (82-101) 09/14/23 12:17 MCH 30.5 pg (27-33) 09/14/23 12:17 MCHC 34.1 g/dL (30-55) 09/14/23 12:17 RDW 13.4 % (12.1-15.1) 09/14/23 12:17 Plt Count 259 10^3/cmm (157-399) 09/14/23 12:17 MPV 9.9 fL (7.4-10.4) 09/14/23 12:17 Neut % (Auto) 77.9 % 09/14/23 12:17 Lymph % (Auto) 14.5 % 09/14/23 12:17 [place] % (Auto) 6.9 % 09/14/23 12:17 Eos % (Auto) 0.1 % 09/14/23 12:17 Baso % (Auto) 0.4 % 09/14/23 12:17 Neut # (Auto) 8.55 10^3/uL (1.8-7.7) H 09/14/23 12:17 Lymph # (Auto) 1.6 10^3/uL (0.8-4.8) 09/14/23 12:17 [place] # (Auto) 0.8 10^3/uL (0.2-0.9) 09/14/23 12:17 Eos # (Auto) 0.0 10^3/uL (0.0-0.8) 09/14/23 12:17 Baso # (Auto) 0.0 10^3/uL (0.0-0.1) 09/14/23 12:17 Nucleated RBC % (auto) 0 % 09/14/23 12:17 Nucleated RBCs # 0.0 /100WBC 09/14/23 12:17 Sodium 139 mmol/L (136-145) 09/14/23 12:17 Potassium 4.8 mmol/L (3.5-5.1) 09/14/23 12:17 Chloride 104 mmol/L (98-107) 09/14/23 12:17 Carbon Dioxide 19 mmol/L (22-29) L 09/14/23 12:17 Anion Gap 20.8 (5-19) H 09/14/23 12:17 BUN 12 mg/dL (6-20) 09/14/23 12:17 Creatinine 1.1 mg/dL (0.7-1.2) 09/14/23 12:17 GFR Calculation 70.6 mL/min (90-130) L 09/14/23 12:17 Glucose 107 mg/dL (65-115) 09/14/23 12:17 Calculated Osmolality 288 mOsm/kg (285-295) 09/14/23 12:17 Calcium 9.4 mg/dL (8.5-10.5) 09/14/23 12:17 Total Bilirubin 0.4 mg/dL (0.15-1.2) 09/14/23 12:17 AST 24 U/L (0-40) 09/14/23 12:17 ALT 17 U/L (0-41) 09/14/23 12:17 Alkaline Phosphatase 76 U/L (40-130) 09/14/23 12:17 Total Protein 8.7 g/dL (6.6-8.7) 09/14/23 12:17 Albumin 4.6 g/dL (3.5-5.2) 09/14/23 12:17 Globulin 4.1 g/dL (1.3-4.6) 09/14/23 12:17 Procalcitonin 0.05 ng/mL (0-0.5) 09/14/23 12:17 All radiology interpretation(s) finalized by discharge Discharge Plan Discharge Patient Disposition: Home Clinical Impression: Respiratory syncytial virus (RSV) Condition: Stable Prescriptions: No Action carvedilol 3.125 mg tablet 3.125 mg PO BID Rx Instructions: must administer with a meal/food clopidogrel [Plavix] 75 mg Tablet 75 mg PO DAILY 30 Days Qty: 30 1RF albuterol sulfate 90 mcg/actuation Hfa Aerosol Inhaler 2 puff INHALATION Q4H PRN (Reason: Shortness Of Breath Or Wheezing) 30 Days Qty: 6.7 1RF escitalopram oxalate 10 mg Tablet 10 mg PO DAILY 30 Days Qty: 30 1RF [id number] [Atripla] 600-200-300 mg tablet 1 tab PO DAILY 30 Days Qty: 30 1RF Rx Instructions: must be taken on empty stomach thiamine mononitrate (vit B1) [Vitamin B-1 (mononitrate)] 100 mg Tablet 100 mg PO DAILY 30 Days Qty: 30 1RF cefdinir 300 mg capsule 300 mg PO BID Qty: 14 0RF azithromycin [Zithromax] 250 mg tablet See Rx Instructions .ROUTE .COMPLEX Qty: 6 0RF Rx Instructions: For 250 mg dose pack: take 500 mg today (day 1), then 250 mg for 4 days (days 2-5) albuterol sulfate 2.5 mg /3 mL (0.083 %) solution for nebulization 2.5 mg INHALATION Q6H PRN (Reason: Shortness Of Breath) amitriptyline 10 mg tablet 10 - 20 mg PO QPM PRN (Reason: Sleep) Discharge Orders: Discharge ED (Routine); Ordered 09/14/23 Ordered By: Sindi Man Other Ambulatory Orders: DME: Oxygen (Order) Location: None Selected Ordered By: Sindi Man Referrals: Radha Holt MD [Primary Care Provider] - Patient Instructions: RSV (Respiratory Syncytial Virus) Infection (ED) Activity Restrictions/Additional Instructions: As we discussed your swabs from yesterday were positive for RSV which is a respiratory viral illness. You can continue your nebulizer treatments and inhalers. You were prescribed antibiotics at yesterday's visit to cover for superimposed bacterial pneumonia. Your chest x-ray today appeared normal. Please follow-up with your primary care provider later this week. You may return to the emergency department for severe shortness of breath or difficulty breathing, generally feeling worse or unwell, fevers, or any other concerns you may have. Hope you begin to feel better soon. Coding Level of Care Code ED Salon/Spa Manager for Jacky Carvajal
[2023-09-14] MEDS: ipratropium-albuterol 3 mL Neb INHALATION (14:26)
[2023-09-14] MEDS: methylPREDNISolone sod succ 125 mg/2 mL INJ 80 MG IM (14:27)
[2023-09-14 14:28] VITALS: PULSE 105; RESP 22; O2SAT 89
[2023-09-14 14:32] VITALS: PULSE 99; RESP 22; O2SAT 93
[2023-09-14 14:41] VITALS: PULSE 102; O2SAT 97
[2023-09-14 16:48] VITALS: PULSE 102; O2SAT 97
== END 2023-09-14 16:30 | disposition home or self-care (01) ==
PROVIDERS: Emergency Provider Physician Assistant; PCP Family Medicine
DX: J22 Unspecified acute lower respiratory infection (principal); B20 Human immunodeficiency virus [HIV] disease; Z95.1 Presence of aortocoronary bypass graft
CPT/HCPCS: 36415; 71045; 80053; 84145; 85025; 94640; 96372; 99284; J2930